=== PATIENT | male | born 1960 | race African-American/Black ===

== ENCOUNTER 2016-11-10 23:17 | Emergency (ER) | payer MEDICARE, MEDICAID ==
[~2016-11-10] VITALS: Ht 180.3 cm; Wt 91.0 kg
[~2016-11-10 23:17] MED LIST: AMIT10TA6 PO; CARV3.1242 PO; COLC0.6T66 PO; DIATR MEGLU/DIATRIZOATE SOLN 120ML ONE; DIGO250T4 PO; DIPH25CA83 PO; DOCU-150 PO; FAMO20TA8 PO; FURO80TA3 PO; GABA-290 PO; HYDR-519 PO; HYDR4TAB23 PO; INSU3INS6 SUBCUT; IOHEXOL-300 100 ML BOTTLE ONE; OMEP20CA10 PO; POTA10TA15 PO; SILV20CR15 TP; SODIUM CHLORIDE 0.9% 10ML VIAL ONE; SPIR25TA4 PO; VIAG50 PO
[2016-11-11] MEDS ORDERED: MORPHINE SULFATE 4 MG/ML CPJ (NOT FOR IM USE) IV STA (00:09)
[2016-11-11] MEDS ORDERED: ONDANSETRON HCL 4MG/2ML VIAL IV STA (00:09)
[2016-11-11] MEDS ORDERED: SODIUM CHLORIDE 0.9% 1,000 ML IV ONE (00:09)
[2016-11-11 00:31] LABS: BASOPHILS % 0.6 % (0.0-2.0); DIFFERENTIAL COMMENT 0; EOSINOPHILS % 0.5 % (0.0-5.0); HEMATOCRIT. 33.5 % (42.0-52.0); HEMOGLOBIN. 10.9 g/dL (14.0-18.0); MEAN CORPUSCULAR HEMOGLOBIN 25.2 pg (28.0-32.0); MEAN CORPUSCULAR HGB CONC 32.6 g/dL (31.0-37.0); MEAN CORPUSCULAR VOLUME 77.5 fL (80.0-94.0); MEAN PLATELET VOLUME 9.4 fl (7.4-10.4); NEUTROPHILS % 75.9 % (40.0-76.0); PLATELET 110 x1000/uL (130-400); RED BLOOD CELL COUNT 4.32 mill/uL (4.7-6.1); RED CELL DISTRIBUTION WIDTH 18.5 % (11.6-14.6); WHITE BLOOD COUNT 3.7 x1000/uL (4.5-11.0)
[2016-11-11 00:35] LABS: INR 2.8
[2016-11-11 00:44] LABS: ALANINE AMINOTRANSFERASE 23 IU/L (13-61); ALBUMIN 3.9 g/dL (3.4-5.0); ANION GAP 14; CALCIUM 8.7 mg/dL (8.5-10.1); CARBON DIOXIDE 28 mEq/L (21-32); CHLORIDE 94 mEq/L (98-107); INDEX HEMOLYSI 1 (1-3); INDEX ICTERIC 2 (1-4); INDEX LIPEMIC 1 (1-3); LIPASE 84 IU/L (73-393); TROPONIN I 0.04 ng/mL (0.00-0.04); UREA NITROGEN BLOOD 17 mg/dL (7-21); eGFR > 60 mL/min (>60)
[2016-11-11] MEDS ORDERED: ONDANSETRON HCL 4MG/2ML VIAL IV ONE (05:00)
[2016-11-11] MEDS ORDERED: MORPHINE SULFATE 4 MG/ML CPJ (NOT FOR IM USE) IV ONE (05:00)
[2016-11-11 07:33] VITALS: BP 108/64
== END 2016-11-11 07:54 | disposition home or self-care (01) ==
LOC: ER 23:22
DX: R10.9 Unspecified abdominal pain (principal); R11.2 Nausea with vomiting, unspecified; R07.89 Other chest pain; I48.91 Unspecified atrial fibrillation; I50.9 Heart failure, unspecified; E11.9 Type 2 diabetes mellitus without complications; I10 Essential (primary) hypertension; F12.10 Cannabis abuse, uncomplicated; Z98.890 Other specified postprocedural states; Z88.0 Allergy status to penicillin; Z88.6 Allergy status to analgesic agent; Z79.899 Other long term (current) drug therapy
CPT/HCPCS: 36415; 71010; 74177; 80053; 83605; 83690; 84484; 85025; 85610; 93005; 96361; 96374; 96375; 96376; 99285; A4216; J2270; J2405; J7030; Q9967; Q9963

== ENCOUNTER 2016-11-12 09:24 | Emergency (ER) | payer MEDICARE, MEDICAID ==
[~2016-11-12] VITALS: Ht 177.8 cm; Wt 80.0 kg
[~2016-11-12 09:24] MED LIST changes: -DIATR MEGLU/DIATRIZOATE SOLN 120ML ONE; -IOHEXOL-300 100 ML BOTTLE ONE; -SODIUM CHLORIDE 0.9% 10ML VIAL ONE
[2016-11-12] MEDS ORDERED: MAGNESIUM/ALUMINUM HYDROXIDE/SIMETHICONE 30ML UDC PO STA (10:06)
[2016-11-12] MEDS ORDERED: ONDANSETRON HCL 4MG/2ML VIAL IV STA (10:06)
[2016-11-12] MEDS ORDERED: VISCOUS LIDOCAINE 2% 15 ML UDC PO STA (10:06)
[2016-11-12] MEDS ORDERED: FAMOTIDINE 20MG/2ML VIAL IV STA (10:06)
[2016-11-12 10:47] LABS: CHLORIDE 89 mEq/L (98-107); DIFFERENTIAL COMMENT 1; HEMATOCRIT. 34.6 % (42.0-52.0); HEMOGLOBIN. 11.4 g/dL (14.0-18.0); INDEX HEMOLYSI 1 (1-3); INDEX ICTERIC 2 (1-4); INDEX LIPEMIC 1 (1-3); MEAN CORPUSCULAR HEMOGLOBIN 25.3 pg (28.0-32.0); MEAN CORPUSCULAR HGB CONC 32.9 g/dL (31.0-37.0); PLATELET 122 x1000/uL (130-400); RED BLOOD CELL COUNT 4.49 mill/uL (4.7-6.1); RED CELL DISTRIBUTION WIDTH 18.2 % (11.6-14.6); WHITE BLOOD COUNT 2.9 x1000/uL (4.5-11.0)
[2016-11-12 10:54] LABS: INR 3.5; PARTIAL THROMBOPLASTIN TIME 42.1 sec (24.0-34.0); PROTHROMBIN TIME 37.1 sec
[2016-11-12 10:55] LABS: ALANINE AMINOTRANSFERASE 24 IU/L (13-61); ALBUMIN 3.7 g/dL (3.4-5.0); ANION GAP 14; CALCIUM 9.3 mg/dL (8.5-10.1); CARBON DIOXIDE 31 mEq/L (21-32); LIPASE 84 IU/L (73-393); UREA NITROGEN BLOOD 15 mg/dL (7-21); eGFR > 60 mL/min (>60)
[2016-11-12] MEDS ORDERED: POTASSIUM CHLORIDE 40MEQ/30ML UDC PO ONE (11:00)
[2016-11-12 11:05] LABS: ANISOCYTOSIS 1+; PLATELET ESTIMATE SLIGHTLY DECREASED
[2016-11-12] MEDS ORDERED: METOCLOPRAMIDE HCL 10MG/2ML VIAL IV ONE (11:15)
[2016-11-12] MEDS ORDERED: KETOROLAC 30MG/ML VIAL IV ONE (11:15)
[2016-11-12] MEDS ORDERED: POTASSIUM CHLORIDE 20 MEQ/PACKET PO ONE (11:30)
[2016-11-12 11:57] VITALS: BP 116/63
== END 2016-11-12 11:59 | disposition home or self-care (01) ==
LOC: ER 09:41
DX: K52.9 Noninfective gastroenteritis and colitis, unspecified (principal); K29.70 Gastritis, unspecified, without bleeding; M32.9 Systemic lupus erythematosus, unspecified; J44.9 Chronic obstructive pulmonary disease, unspecified; I50.9 Heart failure, unspecified; I48.91 Unspecified atrial fibrillation; I10 Essential (primary) hypertension; E11.9 Type 2 diabetes mellitus without complications; F12.10 Cannabis abuse, uncomplicated; Z88.0 Allergy status to penicillin; Z88.6 Allergy status to analgesic agent; Z79.4 Long term (current) use of insulin
CPT/HCPCS: 36415; 71010; 80053; 83690; 85025; 85610; 85730; 93005; 96374; 96375; 99285; J1885; J2405; J2765; J3490

== ENCOUNTER 2017-03-05 15:58 | Inpatient (IN) | payer MEDICARE, MEDICAID ==
[~2017-03-05] VITALS: Ht 182.9 cm; Wt 79.4 kg
[~2017-03-05 15:58] MED LIST changes: -HYDR4TAB23 PO; +HYDR4TAB4 PO
[2017-03-05] MEDS ORDERED: SODIUM CHLORIDE 0.9% 500 ML IV ONE (17:15)
[2017-03-05] MEDS ORDERED: MORPHINE SULFATE 4 MG/ML CPJ (NOT FOR IM USE) IV ONE (17:30)
[2017-03-05 17:35] LABS: BASOPHILS % 0.9 % (0.0-2.0); EOSINOPHILS % 0.9 % (0.0-5.0); HEMATOCRIT. 39.9 % (42.0-52.0); HEMOGLOBIN. 13.4 g/dL (14.0-18.0); LYMPHOCYTES % 23.7 % (20.0-50.0); MEAN CORPUSCULAR HEMOGLOBIN 25.3 pg (28.0-32.0); MEAN CORPUSCULAR VOLUME 75.7 fL (80.0-94.0); MEAN PLATELET VOLUME 9.3 fl (7.4-10.4); MONOCYTES % 17.5 % (2.0-8.0); PLATELET 124 x1000/uL (130-400); RED BLOOD CELL COUNT 5.28 mill/uL (4.7-6.1)
[2017-03-05 17:43] LABS: INR 1.4; PROTHROMBIN TIME 14.2 sec
[2017-03-05 17:53] LABS: CARBON DIOXIDE 26 mEq/L (21-32); CHLORIDE 85 mEq/L (98-107); TROPONIN I 0.06 ng/mL (0.00-0.04)
[2017-03-05 18:28] LABS: PLATELET ESTIMATE NORMAL
[2017-03-05] MEDS ORDERED: MORPHINE SULFATE 4 MG/ML CPJ (NOT FOR IM USE) IV PRN (19:15)
[2017-03-05] MEDS ORDERED: ACETAMINOPHEN 325MG TABLET PO PRN (19:15)
[2017-03-05] MEDS ORDERED: MAGNESIUM/ALUMINUM HYDROXIDE/SIMETHICONE 30ML UDC PO PRN (19:15)
[2017-03-05] MEDS ORDERED: IPRATROPIUM/ALBUTEROL 0.5-3(2.5)MG/3ML NEB INH PRN (19:15)
[2017-03-05] MEDS ORDERED: DEXTROSE 50% WATER 50ML SYRINGE IV PRN (19:15)
[2017-03-05] MEDS ORDERED: SODIUM CHLORIDE 0.9% 1,000 ML IV SCH (19:29)
[2017-03-05] MEDS ORDERED: POTASSIUM CHLORIDE 20MEQ TABLET SR PO NR (19:30)
[2017-03-05] MEDS: ONDANSETRON HCL 4MG/2ML VIAL IV PRN (20:01)
[2017-03-05 20:15] LABS: *AMPHETAMINES SCREEN URINE NEGATIVE (NEGATIVE); *BARBITURATES SCREEN URINE NEGATIVE (NEGATIVE); *BENZODIAZEPINES SCREEN URINE NEGATIVE (NEGATIVE); *COCAINE SCREEN URINE NEGATIVE (NEGATIVE); CANNABINOID URINE SCREEN PRESUMTIVE POSITIVE (NEGATIVE); METHADONE URINE SCREEN NEGATIVE (NEGATIVE); OPIATES URINE SCREEN PRESUMTIVE POSITIVE (NEGATIVE); PHENCYCLIDINE URINE SCREEN NEGATIVE (NEGATIVE)
[2017-03-05 22:04] LABS: CLARITY URINE CLEAR (CLEAR); COLOR URINE YELLOW (YELLOW); GLUCOSE URINE NEGATIVE (NEGATIVE); KETONES URINE NEGATIVE (NEGATIVE); LEUKOCYTE ESTERASE URINE NEGATIVE (NEGATIVE); NITRITE URINE NEGATIVE (NEGATIVE); OCCULT BLOOD URINE NEGATIVE (NEGATIVE); PH URINE 6.5 (4.5-8.0); PROTEIN URINE NEGATIVE (NEGATIVE); SPECIFIC GRAVITY URINE 1.011 (1.005-1.030)
[2017-03-06] VITALS (41 sets, daily range): BP systolic 77–150; BP diastolic 31–72
[2017-03-06] MEDS ORDERED: LIDOCAINE HCL/EPINEPHRINE 1%-EPI 1:100,000 30 ML VIAL INFIL ONE
[2017-03-06] MEDS ORDERED: WARFARIN SODIUM 10MG TABLET PO NR (00:18)
[2017-03-06] MEDS: INSULIN LISPRO 100 UNITS/ML SUBCUT SCH ×5 (01:43→20:08)
[2017-03-06] MEDS: BLOOD SUGAR DIAGNOSTIC STRIP TEST SCH ×5 (02:05→20:03)
[2017-03-06] MEDS: ENOXAPARIN 80MG/0.8ML SYR SUBCUT SCH ×2 (03:01→15:36)
[2017-03-06] MEDS ORDERED: SODIUM CHLORIDE 0.9% 500 ML IV ONE (03:30)
[2017-03-06] MEDS: SODIUM CHLORIDE 0.9% 1,000 ML IV SCH ×3 (03:51→20:03)
[2017-03-06 05:45] LABS: BASOPHILS % 0.8 % (0.0-2.0); EOSINOPHILS % 1.4 % (0.0-5.0); HEMATOCRIT. 37.3 % (42.0-52.0); HEMOGLOBIN. 12.5 g/dL (14.0-18.0); LYMPHOCYTES % 29.3 % (20.0-50.0); MEAN CORPUSCULAR HEMOGLOBIN 25.4 pg (28.0-32.0); MEAN CORPUSCULAR VOLUME 75.9 fL (80.0-94.0); MEAN PLATELET VOLUME 9.3 fl (7.4-10.4); MONOCYTES % 14.5 % (2.0-8.0); PLATELET 120 x1000/uL (130-400); RED BLOOD CELL COUNT 4.91 mill/uL (4.7-6.1); RED CELL DISTRIBUTION WIDTH 19.9 % (11.6-14.6)
[2017-03-06] MEDS: SILDENAFIL CITRATE 20MG TABLET PO SCH ×3 (06:00→21:11)
[2017-03-06] MEDS: PANTOPRAZOLE SODIUM 40 MG/VIAL IV SCH ×2 (06:07→17:35)
[2017-03-06] MEDS: ONDANSETRON HCL 4MG/2ML VIAL IV PRN ×4 (06:51→18:13)
[2017-03-06] MEDS: IPRATROPIUM/ALBUTEROL 0.5-3(2.5)MG/3ML NEB HHN SCH ×5 (08:30→20:44)
[2017-03-06] MEDS ORDERED: PANTOPRAZOLE SODIUM 40 MG/VIAL IV SCH (09:00)
[2017-03-06] MEDS: MORPHINE SULFATE 2 MG/ML CPJ (NOT FOR IM USE) IV PRN ×3 (10:02→19:25)
[2017-03-06] MEDS: LEVOFLOXACIN 500MG PREMIX 100 ML IV SCH (13:29)
[2017-03-06] MEDS: METRONIDAZOLE 500 MG PREMIX 100 ML IV SCH ×2 (15:36→21:10)
[2017-03-06] MEDS ORDERED: WARFARIN SODIUM 10MG TABLET PO SCH (18:00)
[2017-03-06] MEDS: HYDROCODONE/ACETAMINOPHEN 5/325MG TABLET PO PRN ×2 (18:14→22:33)
[2017-03-06] MEDS ORDERED: TEMAZEPAM 15MG CAPSULE PO PRN (22:00)
[2017-03-06] MEDS ORDERED: KETOROLAC 30MG/ML VIAL IV PRN (22:00)
[2017-03-07] VITALS (10 sets, daily range): BP systolic 70–116; BP diastolic 32–63
[2017-03-07] MEDS ORDERED: SODIUM CHLORIDE 0.9% 500 ML IV ONE (00:15)
[2017-03-07] MEDS: IPRATROPIUM/ALBUTEROL 0.5-3(2.5)MG/3ML NEB HHN SCH ×6 (00:48→20:17)
[2017-03-07] MEDS: ENOXAPARIN 80MG/0.8ML SYR SUBCUT SCH ×2 (02:40→18:20)
[2017-03-07] MEDS: SILDENAFIL CITRATE 20MG TABLET PO SCH ×3 (06:00→21:31)
[2017-03-07 06:16] LABS: HEMATOCRIT. 32.3 % (42.0-52.0); HEMOGLOBIN. 10.9 g/dL (14.0-18.0); MEAN CORPUSCULAR HEMOGLOBIN 25.4 pg (28.0-32.0); MEAN CORPUSCULAR VOLUME 75.7 fL (80.0-94.0); MEAN PLATELET VOLUME 9.1 fl (7.4-10.4); PLATELET 90 x1000/uL (130-400); RED BLOOD CELL COUNT 4.27 mill/uL (4.7-6.1); RED CELL DISTRIBUTION WIDTH 19.8 % (11.6-14.6)
[2017-03-07 06:17] LABS: INR 1.4; PROTHROMBIN TIME 14.8 sec
[2017-03-07] MEDS: INSULIN LISPRO 100 UNITS/ML SUBCUT SCH ×4 (07:03→21:00)
[2017-03-07] MEDS: BLOOD SUGAR DIAGNOSTIC STRIP TEST SCH ×4 (07:03→21:14)
[2017-03-07] MEDS: PANTOPRAZOLE SODIUM 40 MG/VIAL IV SCH ×2 (07:04→18:20)
[2017-03-07] MEDS: SODIUM CHLORIDE 0.9% 1,000 ML IV SCH ×2 (07:06→17:03)
[2017-03-07 08:00] LABS: CARBON DIOXIDE 24 mEq/L (21-32); CHLORIDE 99 mEq/L (98-107)
[2017-03-07] MEDS: METRONIDAZOLE 500 MG PREMIX 100 ML IV SCH ×3 (09:38→21:31)
[2017-03-07] MEDS: MORPHINE SULFATE 2 MG/ML CPJ (NOT FOR IM USE) IV PRN ×3 (12:31→21:28)
[2017-03-07] MEDS: LEVOFLOXACIN 500MG PREMIX 100 ML IV SCH (12:45)
[2017-03-07 14:28] LABS: BG BASE EXCESS -2.6 mmol/L (-2.0-2.0); BG CARBOXYHEMOGLOBIN 0.8 % (0.5-1.5); BG DEOXYHEMOGLOBIN 3.2 % (0.0-5.0); BG FRACTION INSPIRED OXYGEN 28; BG HCO3 ACT 18.5 mmol/L (22.0-26.0); BG METHEMOGLOBIN 0.3 % (0.0-1.5); BG OXYGEN SATURATION 96.8 % (92.0-98.5); BG OXYHEMOGLOBIN 95.7 % (94.0-97.0); BG PCO2 22.5 mmHg (35.0-45.0); BG PH 7.532 (7.350-7.450); BG PO2 95.7 mmHg (75.0-100.0); BG SAMPLE SITE LEFT BRACHIAL; BG TOTAL HEMOGLOBIN 11.6 g/dL (12.0-18.0); BG VENT MODE NASAL CANNULA
[2017-03-07] MEDS ORDERED: POTASSIUM CHLORIDE 20MEQ TABLET SR PO NR (14:30)
[2017-03-07] MEDS ORDERED: WARFARIN SODIUM 10MG TABLET PO SCH (18:00)
[2017-03-07] MEDS: KETOROLAC 30MG/ML VIAL IV PRN (20:49)
[2017-03-07 21:09] LABS: ATYPICAL LYMPHOCYTES 1; PLATELET ESTIMATE DECREASED
[2017-03-07] MEDS: DIPHENHYDRAMINE 50MG/ML VIAL IV PRN (22:46)
[2017-03-08] VITALS: BP 105/59
[2017-03-08] MEDS: IPRATROPIUM/ALBUTEROL 0.5-3(2.5)MG/3ML NEB HHN SCH ×5 (00:46→21:07)
[2017-03-08] MEDS: SODIUM CHLORIDE 0.9% 1,000 ML IV SCH ×3 (02:27→22:38)
[2017-03-08] MEDS: MORPHINE SULFATE 2 MG/ML CPJ (NOT FOR IM USE) IV PRN ×4 (02:27→21:15)
[2017-03-08 04:00] VITALS: BP 106/59
[2017-03-08] MEDS: ONDANSETRON HCL 4MG/2ML VIAL IV PRN (04:07)
[2017-03-08] MEDS: DIPHENHYDRAMINE 50MG/ML VIAL IV PRN ×3 (05:21→16:24)
[2017-03-08] MEDS: KETOROLAC 30MG/ML VIAL IV PRN (05:21)
[2017-03-08] MEDS ORDERED: FLUT1DIS2 IH (05:45)
[2017-03-08] MEDS ORDERED: MOME13HF2 INH (05:45)
[2017-03-08] MEDS ORDERED: ATROV INH (05:45)
[2017-03-08] MEDS ORDERED: AMBR10TA3 PO (05:45)
[2017-03-08] MEDS ORDERED: RIOC2TAB PO (05:45)
[2017-03-08] MEDS ORDERED: LIDO1ADH6 TP (05:45)
[2017-03-08] MEDS ORDERED: TIOT18CA3 INH (05:45)
[2017-03-08] MEDS ORDERED: METO5TAB69 PO (05:45)
[2017-03-08] MEDS: METRONIDAZOLE 500 MG PREMIX 100 ML IV SCH ×2 (06:04→12:12)
[2017-03-08] MEDS: PANTOPRAZOLE SODIUM 40 MG/VIAL IV SCH (06:05)
[2017-03-08] MEDS: ENOXAPARIN 80MG/0.8ML SYR SUBCUT SCH (06:06)
[2017-03-08] MEDS: BLOOD SUGAR DIAGNOSTIC STRIP TEST SCH ×4 (06:11→21:25)
[2017-03-08] MEDS: INSULIN LISPRO 100 UNITS/ML SUBCUT SCH ×4 (06:11→21:00)
[2017-03-08] MEDS: SILDENAFIL CITRATE 20MG TABLET PO SCH ×3 (06:14→22:37)
[2017-03-08 06:39] LABS: INR 1.4; PROTHROMBIN TIME 14.6 sec
[2017-03-08 07:04] LABS: HEMATOCRIT. 31.2 % (42.0-52.0); HEMOGLOBIN. 10.5 g/dL (14.0-18.0); MEAN CORPUSCULAR HEMOGLOBIN 25.6 pg (28.0-32.0); MEAN PLATELET VOLUME 9.1 fl (7.4-10.4); PLATELET 81 x1000/uL (130-400); RED CELL DISTRIBUTION WIDTH 19.8 % (11.6-14.6)
[2017-03-08 08:00] VITALS: BP 98/58
[2017-03-08 08:12] LABS: CARBON DIOXIDE 23 mEq/L (21-32); CHLORIDE 100 mEq/L (98-107); PHOSPHORUS 2.4 mg/dL (2.5-4.9)
[2017-03-08 12:00] VITALS: BP 119/49
[2017-03-08] MEDS: LEVOFLOXACIN 500MG PREMIX 100 ML IV SCH (12:13)
[2017-03-08 13:59] LABS: PLATELET ESTIMATE DECREASED
[2017-03-08 16:00] VITALS: BP 110/60
[2017-03-08] MEDS ORDERED: WARFARIN SODIUM 10MG TABLET PO SCH (18:00)
[2017-03-08 20:00] VITALS: BP 144/72
[2017-03-08] MEDS ORDERED: MAGNESIUM 2 G PREMIX 50 ML IV NR (20:00)
[2017-03-08] MEDS: OMEPRAZOLE 20MG CAPSULE EXTENDED RELEASE PO SCH (21:05)
[2017-03-08] MEDS: GABAPENTIN 300MG CAPSULE PO SCH (21:06)
[2017-03-09] MEDS: IPRATROPIUM/ALBUTEROL 0.5-3(2.5)MG/3ML NEB HHN SCH ×6 (00:20→20:14)
[2017-03-09] MEDS: MORPHINE SULFATE 2 MG/ML CPJ (NOT FOR IM USE) IV PRN ×5 (01:30→18:03)
[2017-03-09 04:00] VITALS: BP 132/65
[2017-03-09] MEDS: ONDANSETRON HCL 4MG/2ML VIAL IV PRN (04:31)
[2017-03-09] MEDS: OMEPRAZOLE 20MG CAPSULE EXTENDED RELEASE PO SCH ×2 (06:04→21:13)
[2017-03-09] MEDS: GABAPENTIN 300MG CAPSULE PO SCH ×3 (06:04→21:13)
[2017-03-09] MEDS: METRONIDAZOLE 500MG TABLET PO SCH ×2 (06:04→14:18)
[2017-03-09] MEDS: SILDENAFIL CITRATE 20MG TABLET PO SCH ×3 (06:04→21:13)
[2017-03-09] MEDS: BLOOD SUGAR DIAGNOSTIC STRIP TEST SCH ×4 (06:07→20:49)
[2017-03-09] MEDS: INSULIN LISPRO 100 UNITS/ML SUBCUT SCH ×4 (06:07→20:49)
[2017-03-09] MEDS: DIPHENHYDRAMINE 50MG/ML VIAL IV PRN ×2 (06:18→22:35)
[2017-03-09 06:29] LABS: INR 1.4; PROTHROMBIN TIME 14.7 sec
[2017-03-09 08:00] VITALS: BP 117/64
[2017-03-09] MEDS ORDERED: LEVOFLOXACIN 500MG TABLET PO SCH (11:00)
[2017-03-09 11:09] LABS: HEMATOCRIT. 28.3 % (42.0-52.0); HEMOGLOBIN. 9.7 g/dL (14.0-18.0); MEAN CORPUSCULAR HEMOGLOBIN 25.6 pg (28.0-32.0); MEAN CORPUSCULAR VOLUME 74.5 fL (80.0-94.0); MEAN PLATELET VOLUME 10.1 fl (7.4-10.4); PLATELET 82 x1000/uL (130-400); RED CELL DISTRIBUTION WIDTH 19.9 % (11.6-14.6)
[2017-03-09 11:48] LABS: CARBON DIOXIDE 26 mEq/L (21-32); CHLORIDE 101 mEq/L (98-107); PHOSPHORUS 2.5 mg/dL (2.5-4.9)
[2017-03-09 12:00] VITALS: BP 122/57
[2017-03-09 13:10] LABS: *CREATININE RANDOM URINE 87.2 mg/dL (Not Estab.); MICROALBUMIN RANDOM URINE 5.6 ug/mL (Not Estab.); MICROALBUMIN/CREATININE RATIO 6.4 mg/g creat (0.0-30.0)
[2017-03-09 14:25] LABS: PLATELET ESTIMATE DECREASED
[2017-03-09] MEDS ORDERED: MAGNESIUM HYDROXIDE 400MG/5ML 30ML UDC PO PRN (14:30)
[2017-03-09 16:00] VITALS: BP 144/71
[2017-03-09] MEDS: DOCUSATE SODIUM 100MG CAPSULE PO SCH (17:00)
[2017-03-09] MEDS: POLYETHYLENE GLYCOL 3350 (17GM) 1 DOSE PACK PO SCH (17:10)
[2017-03-09] MEDS: FUROSEMIDE 40MG TABLET PO SCH (17:10)
[2017-03-09] MEDS ORDERED: WARFARIN SODIUM 7.5MG TABLET PO SCH (18:00)
[2017-03-09 20:02] VITALS: BP 155/95
[2017-03-09] MEDS: HYDROCODONE/ACETAMINOPHEN 5/325MG TABLET PO PRN (22:17)
[2017-03-10] VITALS: BP 135/75
[2017-03-10] MEDS: IPRATROPIUM/ALBUTEROL 0.5-3(2.5)MG/3ML NEB HHN SCH ×5 (00:04→21:51)
[2017-03-10 04:00] VITALS: BP 119/77
[2017-03-10] MEDS: BLOOD SUGAR DIAGNOSTIC STRIP TEST SCH ×4 (05:49→20:34)
[2017-03-10] MEDS: INSULIN LISPRO 100 UNITS/ML SUBCUT SCH ×4 (05:49→20:33)
[2017-03-10] MEDS: SILDENAFIL CITRATE 20MG TABLET PO SCH ×3 (05:56→21:07)
[2017-03-10] MEDS: OMEPRAZOLE 20MG CAPSULE EXTENDED RELEASE PO SCH ×2 (05:56→20:33)
[2017-03-10] MEDS: GABAPENTIN 300MG CAPSULE PO SCH ×3 (05:56→21:09)
[2017-03-10 06:05] LABS: INR 1.6; PROTHROMBIN TIME 16.2 sec
[2017-03-10 06:21] LABS: HEMATOCRIT. 30.9 % (42.0-52.0); HEMOGLOBIN. 10.4 g/dL (14.0-18.0); MEAN CORPUSCULAR HEMOGLOBIN 25.7 pg (28.0-32.0); MEAN CORPUSCULAR VOLUME 76.3 fL (80.0-94.0); MEAN PLATELET VOLUME 9.3 fl (7.4-10.4); PLATELET 80 x1000/uL (130-400); RED BLOOD CELL COUNT 4.05 mill/uL (4.7-6.1); RED CELL DISTRIBUTION WIDTH 19.6 % (11.6-14.6)
[2017-03-10] MEDS: POLYETHYLENE GLYCOL 3350 (17GM) 1 DOSE PACK PO SCH (08:17)
[2017-03-10] MEDS: FUROSEMIDE 40MG TABLET PO SCH (08:17)
[2017-03-10] MEDS: DOCUSATE SODIUM 100MG CAPSULE PO SCH ×2 (08:17→17:24)
[2017-03-10] MEDS: HYDROCODONE/ACETAMINOPHEN 5/325MG TABLET PO PRN ×3 (08:21→20:33)
[2017-03-10] MEDS: DIPHENHYDRAMINE 50MG/ML VIAL IV PRN ×2 (08:26→20:33)
[2017-03-10 08:30] VITALS: BP 122/63
[2017-03-10 12:18] VITALS: BP_SYST 102; BP_SYST 156; BP_DIAS 107; BP_DIAS 59
[2017-03-10 13:54] LABS: PLATELET ESTIMATE DECREASED
[2017-03-10 16:37] VITALS: BP 111/69
[2017-03-10] MEDS ORDERED: WARFARIN SODIUM 7.5MG TABLET PO NR (18:00)
[2017-03-10 20:00] VITALS: BP 103/59
[2017-03-11] VITALS (7 sets, daily range): BP systolic 103–134; BP diastolic 59–72
[2017-03-11] MEDS: DIPHENHYDRAMINE 50MG/ML VIAL IV PRN ×2 (01:10→10:56)
[2017-03-11] MEDS: HYDROCODONE/ACETAMINOPHEN 5/325MG TABLET PO PRN ×2 (01:24→05:36)
[2017-03-11] MEDS: IPRATROPIUM/ALBUTEROL 0.5-3(2.5)MG/3ML NEB HHN SCH ×5 (01:28→16:54)
[2017-03-11 05:22] LABS: INR 2.3; PROTHROMBIN TIME 23.6 sec
[2017-03-11] MEDS: GABAPENTIN 300MG CAPSULE PO SCH ×2 (05:36→14:08)
[2017-03-11] MEDS: SILDENAFIL CITRATE 20MG TABLET PO SCH ×2 (06:00→14:08)
[2017-03-11] MEDS: OMEPRAZOLE 20MG CAPSULE EXTENDED RELEASE PO SCH (06:56)
[2017-03-11] MEDS: INSULIN LISPRO 100 UNITS/ML SUBCUT SCH ×2 (06:56→17:15)
[2017-03-11] MEDS: BLOOD SUGAR DIAGNOSTIC STRIP TEST SCH ×2 (06:56→16:45)
[2017-03-11] MEDS: POLYETHYLENE GLYCOL 3350 (17GM) 1 DOSE PACK PO SCH (08:34)
[2017-03-11] MEDS: FUROSEMIDE 40MG TABLET PO SCH (08:34)
[2017-03-11] MEDS: DOCUSATE SODIUM 100MG CAPSULE PO SCH ×2 (08:36→17:22)
[2017-03-11 09:44] LABS: HEMATOCRIT. 28.1 % (42.0-52.0); HEMOGLOBIN. 9.5 g/dL (14.0-18.0); MEAN CORPUSCULAR HEMOGLOBIN 25.5 pg (28.0-32.0); MEAN CORPUSCULAR VOLUME 75.3 fL (80.0-94.0); MEAN PLATELET VOLUME 10.5 fl (7.4-10.4); PLATELET 84 x1000/uL (130-400); RED BLOOD CELL COUNT 3.73 mill/uL (4.7-6.1); RED CELL DISTRIBUTION WIDTH 20.1 % (11.6-14.6)
[2017-03-11] MEDS ORDERED: HYDROCODONE/ACETAMINOPHEN 5/325MG TABLET PO PRN (10:00)
[2017-03-11 13:49] LABS: PLATELET ESTIMATE DECREASED
[2017-03-11] MEDS ORDERED: WARFARIN SODIUM 10MG TABLET PO SCH (18:00)
== END 2017-03-11 18:05 | disposition home or self-care (01) | DRG 871 ==
LOC: ER 15:59 → CVICU 19:21 → EDBEDREQTM 19:38 → EDBEDREQ 19:38 → EDBEDREQSVC 22:36 → ENRESERV 03-06 00:48 → 5WST 03-06 23:15
PROVIDERS: ADMIT Internal Medicine; ATTEND Internal Medicine
DX: A41.9 Sepsis, unspecified organism (principal); N17.0 Acute kidney failure with tubular necrosis; J96.00 Acute respiratory failure, unspecified whether with hypoxia or hypercapnia; I26.99 Other pulmonary embolism without acute cor pulmonale; D68.62 Lupus anticoagulant syndrome; D61.818 Other pancytopenia; E86.0 Dehydration; I27.81 Cor pulmonale (chronic); I48.2 Chronic atrial fibrillation; R55 Syncope and collapse; I95.9 Hypotension, unspecified; I11.0 Hypertensive heart disease with heart failure; I50.9 Heart failure, unspecified; I27.2 Other secondary pulmonary hypertension; E11.9 Type 2 diabetes mellitus without complications; J44.9 Chronic obstructive pulmonary disease, unspecified
CPT/HCPCS: 36415; 36600; 70450; 71010; 76700; 78227; 78580; 80048; 80053; 80305; 81003; 82043; 82375; 82570; 82805; 82962; 83036; 83540; 83550; 83605; 83690; 83735; 83880; 84100; 84484; 85025; 85610; 87040; 87086; 93005; 93306; 93880; 93970; 94640; 96361; 96374; 99285; A9537; C1893; C9113; J1200; J1650; J1885; J1956; J2270; J2405; J3475; J3490; J7030; J7040; J7620

== ENCOUNTER 2017-09-30 01:00 | Inpatient (IN) | payer MEDICARE, MEDICAID ==
[~2017-09-30] VITALS: Ht 180.3 cm; Wt 90.7 kg
[~2017-09-30 01:00] MED LIST changes: +AMBR10TA3 PO; +ATROV INH; +FLUT1DIS2 IH; -INSU3INS6 SUBCUT; +LIDO1ADH6 TP; +METO5TAB69 PO; +MOME13HF2 INH; +RIOC2TAB PO; -SILV20CR15 TP; -SPIR25TA4 PO; +SPIR25TA6 PO; +TIOT18CA3 INH
[2017-09-30] MEDS ORDERED: ALBUTEROL (0.083%) 2.5MG/3ML NEB HHN STA (01:55)
[2017-09-30] MEDS ORDERED: ONDANSETRON HCL 4MG/2ML INJ IV STA (01:55)
[2017-09-30] MEDS ORDERED: METHYLPREDNISOLONE SOD SUCC 125 MG/2 ML VIAL IV STA (01:55)
[2017-09-30] MEDS ORDERED: NITROGLYCERIN OINT 1GM/INCH UDPKT TD STA (01:55)
[2017-09-30] MEDS ORDERED: IPRATROPIUM BROMIDE (0.02%) 0.5MG/2.5ML NEB HHN STA (01:55)
[2017-09-30] MEDS ORDERED: TRAMADOL 50MG TABLET PO ONE (02:00)
[2017-09-30 02:35] LABS: HEMATOCRIT. 23.8 % (42.0-52.0); HEMOGLOBIN. 7.8 g/dL (14.0-18.0); MEAN CORPUSCULAR HEMOGLOBIN 23.1 pg (28.0-32.0); MEAN CORPUSCULAR VOLUME 70.5 fL (80.0-94.0); PLATELET 191 x1000/uL (130-400); RED BLOOD CELL COUNT 3.37 mill/uL (4.7-6.1)
[2017-09-30 02:48] LABS: INR 1.6; PROTHROMBIN TIME 17.1 sec (9.4-11.6)
[2017-09-30] MEDS ORDERED: DIPHENHYDRAMINE 25MG CAPSULE PO ONE (03:15)
[2017-09-30 04:32] LABS: PLATELET ESTIMATE NORMAL
[2017-09-30 05:13] LABS: CHLORIDE 86 mEq/L (98-107)
[2017-09-30] MEDS ORDERED: HYDROCODONE/ACETAMINOPHEN 5/325MG TABLET PO ONE (06:47)
[2017-09-30 09:30] VITALS: BP 114/54
[2017-09-30] MEDS ORDERED: DEXTROSE 50% WATER 50ML SYRINGE IV PRN (10:15)
[2017-09-30] MEDS ORDERED: CLONIDINE 0.1MG TABLET PO PRN (10:15)
[2017-09-30] MEDS ORDERED: IPRATROPIUM/ALBUTEROL 0.5-3(2.5)MG/3ML NEB INH PRN (10:15)
[2017-09-30] MEDS ORDERED: ACETAMINOPHEN 325MG TABLET PO PRN (10:15)
[2017-09-30] MEDS ORDERED: MAGNESIUM/ALUMINUM HYDROXIDE/SIMETHICONE 30ML UDC PO PRN (10:15)
[2017-09-30] MEDS: HYDROCODONE/ACETAMINOPHEN 5/325MG TABLET PO PRN ×2 (10:48→18:57)
[2017-09-30] MEDS ORDERED: WARF10TA21 PO (10:51)
[2017-09-30] MEDS ORDERED: WARF7.5T22 PO (10:55)
[2017-09-30 11:00] VITALS: BP 114/54
[2017-09-30] MEDS: DIPHENHYDRAMINE 50MG/ML VIAL IV PRN ×3 (11:16→23:20)
[2017-09-30 12:00] VITALS: BP 103/57
[2017-09-30] MEDS: SODIUM CHLORIDE 0.9% 1,000 ML IV SCH ×2 (12:14→21:05)
[2017-09-30] MEDS: BLOOD SUGAR DIAGNOSTIC STRIP TEST SCH ×3 (12:14→21:15)
[2017-09-30] MEDS: INSULIN LISPRO 100 UNITS/ML SUBCUT SCH ×3 (12:48→21:14)
[2017-09-30] MEDS: SILDENAFIL CITRATE 20MG TABLET PO SCH ×2 (14:16→21:03)
[2017-09-30 16:00] VITALS: BP 90/56
[2017-09-30] MEDS: SODIUM CHLORIDE 0.9% INJ 3ML FLUSH IVF SCH ×2 (16:58→21:04)
[2017-09-30] MEDS: DIGOXIN 125MCG TABLET PO SCH (17:39)
[2017-09-30] MEDS ORDERED: WARFARIN SODIUM 10MG TABLET PO SCH (18:00)
[2017-09-30 18:01] VITALS: BP 103/61
[2017-09-30 20:00] VITALS: BP 101/53
[2017-09-30] MEDS ORDERED: WARFARIN SODIUM 10MG TABLET PO NR (20:00)
[2017-09-30] MEDS: CARVEDILOL 3.125 MG TABLET PO SCH (21:00)
[2017-09-30] MEDS ORDERED: GABAPENTIN 300MG CAPSULE PO ONE (22:15)
[2017-09-30] MEDS ORDERED: GABAPENTIN 300MG CAPSULE PO SCH (22:15)
[2017-09-30] MEDS: GUAIFENESIN 200MG/10ML SUGAR FREE UDC PO PRN (23:17)
[2017-09-30] MEDS: HYDROCODONE/ACETAMINOPHEN 10/325MG TABLET PO PRN (23:20)
[2017-10-01] VITALS: BP 121/54
[2017-10-01] MEDS: DIPHENHYDRAMINE 50MG/ML VIAL IV PRN ×4 (03:22→22:24)
[2017-10-01 04:00] VITALS: BP 120/69
[2017-10-01] MEDS: SODIUM CHLORIDE 0.9% INJ 3ML FLUSH IVF SCH ×3 (06:42→21:09)
[2017-10-01] MEDS: SILDENAFIL CITRATE 20MG TABLET PO SCH ×3 (06:43→21:09)
[2017-10-01] MEDS: GABAPENTIN 300MG CAPSULE PO SCH ×3 (06:43→21:09)
[2017-10-01] MEDS: INSULIN LISPRO 100 UNITS/ML SUBCUT SCH ×4 (06:44→21:00)
[2017-10-01] MEDS: BLOOD SUGAR DIAGNOSTIC STRIP TEST SCH ×4 (06:45→21:10)
[2017-10-01 06:56] LABS: HEMATOCRIT. 22.8 % (42.0-52.0); HEMOGLOBIN. 7.3 g/dL (14.0-18.0); MEAN CORPUSCULAR HEMOGLOBIN 22.5 pg (28.0-32.0); MEAN PLATELET VOLUME 8.9 fl (7.4-10.4); PLATELET 167 x1000/uL (130-400); RED BLOOD CELL COUNT 3.25 mill/uL (4.7-6.1); RED CELL DISTRIBUTION WIDTH 21.2 % (11.6-14.6)
[2017-10-01 06:59] LABS: INR 2.1; PROTHROMBIN TIME 21.3 sec (9.4-11.6)
[2017-10-01 07:57] LABS: CHLORIDE 93 mEq/L (98-107)
[2017-10-01 08:00] VITALS: BP 118/54
[2017-10-01] MEDS: CARVEDILOL 3.125 MG TABLET PO SCH ×2 (08:34→21:08)
[2017-10-01] MEDS: HYDROCODONE/ACETAMINOPHEN 10/325MG TABLET PO PRN ×3 (09:08→22:24)
[2017-10-01 12:00] VITALS: BP 95/56
[2017-10-01] MEDS ORDERED: IPRATROPIUM/ALBUTEROL 0.5-3(2.5)MG/3ML NEB HHN SCH (12:00)
[2017-10-01] MEDS: SODIUM CHLORIDE 0.9% 1,000 ML IV SCH (13:34)
[2017-10-01 16:00] VITALS: BP 143/66
[2017-10-01] MEDS: ONDANSETRON HCL 4MG/2ML INJ IV PRN (16:28)
[2017-10-01] MEDS: IPRATROPIUM/ALBUTEROL 0.5-3(2.5)MG/3ML NEB HHN SCH ×2 (16:52→20:34)
[2017-10-01] MEDS: DIGOXIN 125MCG TABLET PO SCH (17:38)
[2017-10-01] MEDS ORDERED: WARFARIN SODIUM 10MG TABLET PO NR (18:00)
[2017-10-01 20:00] VITALS: BP 117/64
[2017-10-01] MEDS: BUDESONIDE 0.5MG/2ML NEB HHN SCH (20:33)
[2017-10-02] VITALS: BP 104/77
[2017-10-02] MEDS: IPRATROPIUM/ALBUTEROL 0.5-3(2.5)MG/3ML NEB HHN SCH ×4 (01:49→19:44)
[2017-10-02 04:00] VITALS: BP 134/65
[2017-10-02] MEDS: GUAIFENESIN 200MG/10ML SUGAR FREE UDC PO PRN (04:45)
[2017-10-02] MEDS: DIPHENHYDRAMINE 50MG/ML VIAL IV PRN ×4 (04:45→23:38)
[2017-10-02] MEDS: SODIUM CHLORIDE 0.9% 1,000 ML IV SCH (04:45)
[2017-10-02] MEDS: BLOOD SUGAR DIAGNOSTIC STRIP TEST SCH ×4 (04:48→20:44)
[2017-10-02] MEDS: HYDROCODONE/ACETAMINOPHEN 10/325MG TABLET PO PRN ×3 (04:48→20:39)
[2017-10-02] MEDS: SODIUM CHLORIDE 0.9% INJ 3ML FLUSH IVF SCH ×3 (04:49→21:14)
[2017-10-02] MEDS: INSULIN LISPRO 100 UNITS/ML SUBCUT SCH ×4 (04:49→20:44)
[2017-10-02 06:01] LABS: INR 2.3; PROTHROMBIN TIME 23.8 sec (9.4-11.6)
[2017-10-02 06:19] LABS: CHLORIDE 95 mEq/L (98-107)
[2017-10-02 06:24] LABS: HEMATOCRIT. 22.1 % (42.0-52.0); HEMOGLOBIN. 7.2 g/dL (14.0-18.0); MEAN CORPUSCULAR HEMOGLOBIN 22.8 pg (28.0-32.0); MEAN PLATELET VOLUME 9.1 fl (7.4-10.4); PLATELET 157 x1000/uL (130-400); RED BLOOD CELL COUNT 3.16 mill/uL (4.7-6.1); RED CELL DISTRIBUTION WIDTH 21.3 % (11.6-14.6)
[2017-10-02] MEDS: GABAPENTIN 300MG CAPSULE PO SCH ×3 (07:01→21:14)
[2017-10-02] MEDS: SILDENAFIL CITRATE 20MG TABLET PO SCH ×3 (07:02→21:14)
[2017-10-02 08:00] VITALS: BP 106/63
[2017-10-02] MEDS: BUDESONIDE 0.5MG/2ML NEB HHN SCH ×2 (08:20→19:44)
[2017-10-02] MEDS: CARVEDILOL 3.125 MG TABLET PO SCH ×2 (08:42→20:40)
[2017-10-02 12:00] VITALS: BP 127/96
[2017-10-02 12:57] LABS: PLATELET ESTIMATE NORMAL
[2017-10-02 13:29] LABS: PLATELET ESTIMATE NORMAL
[2017-10-02] MEDS ORDERED: MAGNESIUM HYDROXIDE 400MG/5ML 30ML UDC PO PRN (13:30)
[2017-10-02] MEDS ORDERED: AZITHROMYCIN 500 MG TABLET PO SCH (13:30)
[2017-10-02] MEDS ORDERED: IPRATROPIUM/ALBUTEROL 0.5-3(2.5)MG/3ML NEB HHN PRN (13:30)
[2017-10-02] MEDS: AZITHROMYCIN 500 MG TABLET PO SCH (13:55)
[2017-10-02] MEDS: POLYETHYLENE GLYCOL 3350 (17GM) 1 DOSE PACK PO SCH (13:56)
[2017-10-02] MEDS ORDERED: ACETYLCYSTEINE 100MG/ML 10% VIAL 4ML INH NR (15:00)
[2017-10-02 16:00] VITALS: BP 133/58
[2017-10-02] MEDS: DIGOXIN 125MCG TABLET PO SCH (17:59)
[2017-10-02] MEDS ORDERED: WARFARIN SODIUM 10MG TABLET PO SCH (18:00)
[2017-10-02 20:00] VITALS: BP 118/66
[2017-10-02] MEDS: GUAIFENESIN 600MG ER TABLET PO SCH (20:40)
[2017-10-03] VITALS: BP 120/63
[2017-10-03] MEDS: HYDROCODONE/ACETAMINOPHEN 10/325MG TABLET PO PRN ×5 (02:44→23:48)
[2017-10-03] MEDS: IPRATROPIUM/ALBUTEROL 0.5-3(2.5)MG/3ML NEB HHN SCH ×4 (03:08→21:15)
[2017-10-03] MEDS: DIPHENHYDRAMINE 50MG/ML VIAL IV PRN ×4 (03:48→16:38)
[2017-10-03 04:00] VITALS: BP 126/69
[2017-10-03] MEDS: SILDENAFIL CITRATE 20MG TABLET PO SCH ×3 (05:47→21:07)
[2017-10-03] MEDS: GABAPENTIN 300MG CAPSULE PO SCH ×3 (05:47→21:07)
[2017-10-03] MEDS: SODIUM CHLORIDE 0.9% INJ 3ML FLUSH IVF SCH ×3 (05:48→21:08)
[2017-10-03] MEDS: BLOOD SUGAR DIAGNOSTIC STRIP TEST SCH ×4 (05:50→21:08)
[2017-10-03 06:01] LABS: INR 2.4; PROTHROMBIN TIME 24.8 sec (9.4-11.6)
[2017-10-03] MEDS: INSULIN LISPRO 100 UNITS/ML SUBCUT SCH ×4 (06:19→21:00)
[2017-10-03] MEDS: BUDESONIDE 0.5MG/2ML NEB HHN SCH ×2 (07:23→21:15)
[2017-10-03 08:00] VITALS: BP 136/69
[2017-10-03] MEDS: GUAIFENESIN 600MG ER TABLET PO SCH ×2 (08:04→21:07)
[2017-10-03] MEDS: AZITHROMYCIN 500 MG TABLET PO SCH (08:04)
[2017-10-03] MEDS: CARVEDILOL 3.125 MG TABLET PO SCH ×2 (08:05→21:07)
[2017-10-03] MEDS: POLYETHYLENE GLYCOL 3350 (17GM) 1 DOSE PACK PO SCH (08:53)
[2017-10-03 12:00] VITALS: BP 129/72
[2017-10-03] MEDS: DIGOXIN 125MCG TABLET PO SCH (17:23)
[2017-10-03] MEDS ORDERED: WARFARIN SODIUM 10MG TABLET PO NR (18:00)
[2017-10-03 20:00] VITALS: BP 132/73
[2017-10-03] MEDS: ONDANSETRON HCL 4MG/2ML INJ IV PRN (23:33)
[2017-10-04] VITALS: BP 130/70
[2017-10-04] MEDS: DIPHENHYDRAMINE 50MG/ML VIAL IV PRN ×2 (02:23→06:17)
[2017-10-04] MEDS: IPRATROPIUM/ALBUTEROL 0.5-3(2.5)MG/3ML NEB HHN SCH ×2 (02:24→08:41)
[2017-10-04 04:00] VITALS: BP 128/69
[2017-10-04] MEDS: SILDENAFIL CITRATE 20MG TABLET PO SCH (06:17)
[2017-10-04] MEDS: GABAPENTIN 300MG CAPSULE PO SCH (06:17)
[2017-10-04] MEDS: BLOOD SUGAR DIAGNOSTIC STRIP TEST SCH (06:18)
[2017-10-04] MEDS: ONDANSETRON HCL 4MG/2ML INJ IV PRN (06:31)
[2017-10-04] MEDS: SODIUM CHLORIDE 0.9% INJ 3ML FLUSH IVF SCH (06:32)
[2017-10-04] MEDS: HYDROCODONE/ACETAMINOPHEN 10/325MG TABLET PO PRN (06:32)
[2017-10-04 06:56] LABS: INR 2.4; PROTHROMBIN TIME 25.4 sec (9.4-11.6)
[2017-10-04] MEDS: INSULIN LISPRO 100 UNITS/ML SUBCUT SCH (06:59)
[2017-10-04 08:00] VITALS: BP 126/63
[2017-10-04] MEDS: BUDESONIDE 0.5MG/2ML NEB HHN SCH (08:40)
[2017-10-04] MEDS: GUAIFENESIN 600MG ER TABLET PO SCH (09:32)
[2017-10-04] MEDS: AZITHROMYCIN 500 MG TABLET PO SCH (09:32)
[2017-10-04] MEDS: CARVEDILOL 3.125 MG TABLET PO SCH (09:33)
[2017-10-04] MEDS: POLYETHYLENE GLYCOL 3350 (17GM) 1 DOSE PACK PO SCH (09:33)
[2017-10-04 12:11] VITALS: BP 96/54
[2017-10-04] MEDS ORDERED: WARFARIN SODIUM 10MG TABLET PO SCH (18:00)
== END 2017-10-04 13:55 | disposition home or self-care (01) | DRG 682 ==
LOC: ER 01:29 → EDBEDREQ 03:09 → 5WST 05:45 → EDBEDREQTM 05:48 → EDBEDREQ 05:48 → ENRESERV 07:14
PROVIDERS: ADMIT Internal Medicine; ATTEND Internal Medicine
DX: N17.9 Acute kidney failure, unspecified (principal); J96.00 Acute respiratory failure, unspecified whether with hypoxia or hypercapnia; E87.1 Hypo-osmolality and hyponatremia; I11.0 Hypertensive heart disease with heart failure; I50.9 Heart failure, unspecified; E11.9 Type 2 diabetes mellitus without complications; D64.9 Anemia, unspecified; I27.20 Pulmonary hypertension, unspecified; I48.2 Chronic atrial fibrillation; F17.200 Nicotine dependence, unspecified, uncomplicated; G89.29 Other chronic pain; J44.9 Chronic obstructive pulmonary disease, unspecified; Z79.01 Long term (current) use of anticoagulants; Z82.49 Family history of ischemic heart disease and other diseases of the circulatory system; Z86.711 Personal history of pulmonary embolism; Z86.718 Personal history of other venous thrombosis and embolism; Z88.0 Allergy status to penicillin; Z79.899 Other long term (current) drug therapy; Z79.1 Long term (current) use of non-steroidal anti-inflammatories (NSAID)
CPT/HCPCS: 36415; 71045; 80048; 82270; 82962; 83605; 83735; 83880; 84484; 93005; 94640; 94664; 96374; 96375; 99285; A6261; J1200; J1815; J2405; J2930; J7030; J7608; J7611; J7620; J7626; Q0163

== ENCOUNTER 2017-12-26 12:56 | Inpatient (IN) | payer MEDICARE, MEDICAID ==
[~2017-12-26] VITALS: Ht 180.3 cm; Wt 86.6 kg
[~2017-12-26 12:56] MED LIST changes: -AMIT10TA6 PO; -HYDR4TAB4 PO; +SPIR25TA4 PO; -SPIR25TA6 PO; +WARF10TA21 PO; +WARF7.5T22 PO
[2017-12-26] MEDS ORDERED: ASPIRIN 81MG TABLET PO STA (13:32)
[2017-12-26] MEDS ORDERED: ONDANSETRON HCL 4MG/2ML VIAL IV STA (13:32)
[2017-12-26] MEDS ORDERED: MORPHINE SULFATE 4 MG/ML CPJ (NOT FOR IM USE) IV STA (13:32)
[2017-12-26] MEDS ORDERED: NITROGLYCERIN OINT 1GM/INCH UDPKT TD STA (13:32)
[2017-12-26] MEDS ORDERED: MIDAZOLAM HCL 2 MG/2 ML VIAL IV ONE (14:15)
[2017-12-26 14:20] LABS: HEMATOCRIT. 41.7 % (42.0-52.0); HEMOGLOBIN. 14.3 g/dL (14.0-18.0); MEAN CORPUSCULAR HEMOGLOBIN 25.1 pg (28.0-32.0); MEAN CORPUSCULAR VOLUME 73.1 fL (80.0-94.0); PLATELET 203 x1000/uL (130-400); RED CELL DISTRIBUTION WIDTH 29.9 % (11.6-14.6)
[2017-12-26 14:26] LABS: CHLORIDE 85 mEq/L (98-107)
[2017-12-26 14:29] LABS: INR 2.3; PARTIAL THROMBOPLASTIN TIME 36.4 sec (23.4-31.0); PROTHROMBIN TIME 23.7 sec (9.4-11.6)
[2017-12-26 14:30] LABS: AMYLASE 46 IU/L (25-115)
[2017-12-26 14:35] LABS: CREATINE KINASE 233 IU/L (39-308)
[2017-12-26 14:38] LABS: CREATINE KINASE MB FRACTION 2.4 ng/mL (0.5-3.6)
[2017-12-26 15:25] LABS: PLATELET ESTIMATE NORMAL
[2017-12-26] MEDS ORDERED: POTASSIUM CHLORIDE 20MEQ TABLET SR PO ONE (16:30)
[2017-12-26] MEDS ORDERED: FUROSEMIDE 20MG/2ML VIAL IVP ONE (16:30)
[2017-12-26 17:30] LABS: CLARITY URINE CLEAR (CLEAR); COLOR URINE YELLOW (YELLOW); KETONES URINE TRACE (NEGATIVE); LEUKOCYTE ESTERASE URINE NEGATIVE (NEGATIVE); NITRITE URINE NEGATIVE (NEGATIVE); OCCULT BLOOD URINE NEGATIVE (NEGATIVE); PROTEIN URINE NEGATIVE (NEGATIVE); SPECIFIC GRAVITY URINE 1.012 (1.005-1.030); UROBILINOGEN URINE 0.2 E.U./dL (0.2-1.0)
[2017-12-26] MEDS ORDERED: IPRATROPIUM/ALBUTEROL 0.5-3(2.5)MG/3ML NEB INH PRN (18:45)
[2017-12-26] MEDS ORDERED: BISACODYL 5MG TABLET PO PRN (18:45)
[2017-12-26] MEDS ORDERED: MAGNESIUM CITRATE 300ML SOLUTION PO PRN (18:45)
[2017-12-26] MEDS ORDERED: BISACODYL 10MG SUPP PR PRN (18:45)
[2017-12-26] MEDS ORDERED: GUAIFENESIN 200MG/10ML SUGAR FREE UDC PO PRN (18:45)
[2017-12-26] MEDS ORDERED: MINERAL OIL ENEMA 133ML PR ONE (18:45)
[2017-12-26] MEDS ORDERED: DOCUSATE SODIUM 100MG CAPSULE PO PRN (18:45)
[2017-12-26] MEDS ORDERED: MAGNESIUM/ALUMINUM HYDROXIDE/SIMETHICONE 30ML UDC PO PRN (18:45)
[2017-12-26] MEDS ORDERED: CLONIDINE 0.1MG TABLET PO PRN (18:45)
[2017-12-26] MEDS ORDERED: MAGNESIUM CITRATE 300ML SOLUTION PO ONE (18:45)
[2017-12-26] MEDS ORDERED: NITROGLYCERIN 0.4MG TABLET SL SL PRN (18:45)
[2017-12-26 19:54] LABS: *AMPHETAMINES SCREEN URINE NEGATIVE (NEGATIVE); *BARBITURATES SCREEN URINE NEGATIVE (NEGATIVE); *BENZODIAZEPINES SCREEN URINE PRESUMTIVE POSITIVE (NEGATIVE); *COCAINE SCREEN URINE NEGATIVE (NEGATIVE)
[2017-12-26 19:55] LABS: CANNABINOID URINE SCREEN PRESUMTIVE POSITIVE (NEGATIVE); METHADONE URINE SCREEN NEGATIVE (NEGATIVE); OPIATES URINE SCREEN PRESUMTIVE POSITIVE (NEGATIVE); PHENCYCLIDINE URINE SCREEN NEGATIVE (NEGATIVE)
[2017-12-26] MEDS ORDERED: ZOLPIDEM TARTRATE 5MG TABLET PO PRN (21:30)
[2017-12-26] MEDS ORDERED: PANTOPRAZOLE SODIUM 40 MG/VIAL IV SCH (21:30)
[2017-12-26] MEDS ORDERED: NA PHOS,M-B/NA PHOS,DI-BA ENEMA 118ML PR PRN (22:00)
[2017-12-26] MEDS: MORPHINE SULFATE 4 MG/ML CPJ (NOT FOR IM USE) IV PRN (22:55)
[2017-12-26] MEDS: METRONIDAZOLE 500 MG PREMIX 100 ML IV SCH (22:55)
[2017-12-26] MEDS: SODIUM CHLORIDE 0.9% INJ 3ML FLUSH IVF SCH (22:56)
[2017-12-26] MEDS ORDERED: DIPHENHYDRAMINE 25MG CAPSULE PO SCH (23:15)
[2017-12-26] MEDS: LEVOFLOXACIN 500MG PREMIX 100 ML IV SCH (23:42)
[2017-12-26] MEDS ORDERED: WARFARIN SODIUM 10MG TABLET PO SCH (23:45)
[2017-12-27] VITALS (8 sets, daily range): BP systolic 89–112; BP diastolic 51–59
[2017-12-27] MEDS ORDERED: HYDROCODONE/ACETAMINOPHEN 10/325MG TABLET PO SCH
[2017-12-27] MEDS ORDERED: WARFARIN SODIUM 10MG TABLET PO SCH ×2 (00:15→09:00)
[2017-12-27] MEDS: FAMOTIDINE 20MG TABLET PO SCH ×2 (00:25→10:34)
[2017-12-27] MEDS: CARVEDILOL 3.125 MG TABLET PO SCH ×3 (00:26→20:57)
[2017-12-27] MEDS: DOCUSATE SODIUM 100MG CAPSULE PO SCH ×3 (00:26→15:34)
[2017-12-27] MEDS: SPIRONOLACTONE 25MG TABLET PO SCH ×2 (00:28→09:00)
[2017-12-27] MEDS: COLCHICINE 0.6MG TABLET PO SCH ×2 (00:29→10:34)
[2017-12-27] MEDS: DIGOXIN 250MCG TABLET PO SCH ×2 (00:29→10:34)
[2017-12-27] MEDS: FUROSEMIDE 80MG TABLET PO SCH ×3 (00:29→21:44)
[2017-12-27 00:45] LABS: CREATINE KINASE MB FRACTION 2.3 ng/mL (0.5-3.6)
[2017-12-27] MEDS: DIPHENHYDRAMINE 50MG/ML VIAL IV PRN ×3 (04:08→21:54)
[2017-12-27 06:41] LABS: HEMATOCRIT. 39.9 % (42.0-52.0); HEMOGLOBIN. 13.7 g/dL (14.0-18.0); MEAN CORPUSCULAR HEMOGLOBIN 24.9 pg (28.0-32.0); MEAN CORPUSCULAR VOLUME 72.5 fL (80.0-94.0); MEAN PLATELET VOLUME 9.1 fl (7.4-10.4); PLATELET 210 x1000/uL (130-400)
[2017-12-27] MEDS: METRONIDAZOLE 500 MG PREMIX 100 ML IV SCH ×2 (06:46→12:53)
[2017-12-27] MEDS: SODIUM CHLORIDE 0.9% INJ 3ML FLUSH IVF SCH ×3 (06:46→21:44)
[2017-12-27] MEDS ORDERED: OMEPRAZOLE 20MG CAPSULE EXTENDED RELEASE PO SCH (07:20)
[2017-12-27 07:25] LABS: PLATELET ESTIMATE NORMAL
[2017-12-27 07:43] LABS: CHLORIDE 88 mEq/L (98-107)
[2017-12-27 07:56] LABS: CREATINE KINASE 191 IU/L (39-308)
[2017-12-27 07:57] LABS: HDL CHOLESTEROL 57 mg/dL (40-59); LDL CHOLESTEROL 62 mg/dL (5-100)
[2017-12-27 08:02] LABS: CREATINE KINASE MB FRACTION 2.4 ng/mL (0.5-3.6)
[2017-12-27] MEDS: ONDANSETRON HCL 4MG/2ML VIAL IV PRN ×3 (08:12→21:54)
[2017-12-27 09:04] LABS: T4 FREE 1.6 ng/dL (0.76-1.46)
[2017-12-27 14:40] LABS: D-DIMER 0.86 mg/L FEU (<0.50); INR 2.9; PROTHROMBIN TIME 30.4 sec (9.4-11.6)
[2017-12-27 14:57] LABS: CREATINE KINASE 179 IU/L (39-308)
[2017-12-27 14:58] LABS: CREATINE KINASE MB FRACTION 2.2 ng/mL (0.5-3.6)
[2017-12-27] MEDS: MORPHINE SULFATE 4 MG/ML CPJ (NOT FOR IM USE) IV PRN ×2 (16:10→21:58)
[2017-12-27] MEDS: METOCLOPRAMIDE HCL 10MG/2ML VIAL IV SCH ×2 (18:45→23:52)
[2017-12-27] MEDS: SODIUM CHLORIDE 0.9% 1,000 ML IV SCH (23:36)
[2017-12-27] MEDS: LEVOFLOXACIN 500MG PREMIX 100 ML IV SCH (23:52)
[2017-12-27 23:54] LABS: CREATINE KINASE 161 IU/L (39-308)
[2017-12-27 23:55] LABS: CREATINE KINASE MB FRACTION 2.1 ng/mL (0.5-3.6)
[2017-12-28] VITALS: BP 97/58
[2017-12-28] MEDS: IPRATROPIUM/ALBUTEROL 0.5-3(2.5)MG/3ML NEB HHN SCH (02:47)
[2017-12-28 04:00] VITALS: BP 112/70
[2017-12-28] MEDS: METOCLOPRAMIDE HCL 10MG/2ML VIAL IV SCH ×4 (06:38→23:55)
[2017-12-28] MEDS: SODIUM CHLORIDE 0.9% INJ 3ML FLUSH IVF SCH ×3 (06:38→22:00)
[2017-12-28 07:11] LABS: PROTHROMBIN TIME 31.8 sec (9.4-11.6)
[2017-12-28 08:00] VITALS: BP 98/56
[2017-12-28 08:11] LABS: CREATINE KINASE 132 IU/L (39-308)
[2017-12-28 08:12] LABS: CREATINE KINASE MB FRACTION 1.5 ng/mL (0.5-3.6)
[2017-12-28] MEDS: ONDANSETRON HCL 4MG/2ML VIAL IV PRN ×3 (08:23→14:31)
[2017-12-28] MEDS ORDERED: IOHEXOL-350 100 ML BOTTLE ONE (09:00)
[2017-12-28] MEDS: CARVEDILOL 3.125 MG TABLET PO SCH ×2 (09:00→20:23)
[2017-12-28] MEDS: DOCUSATE SODIUM 100MG CAPSULE PO SCH ×2 (09:31→17:00)
[2017-12-28] MEDS: FAMOTIDINE 20MG TABLET PO SCH (09:31)
[2017-12-28] MEDS: DIGOXIN 250MCG TABLET PO SCH (09:36)
[2017-12-28] MEDS: COLCHICINE 0.6MG TABLET PO SCH (09:40)
[2017-12-28] MEDS: MORPHINE SULFATE 4 MG/ML CPJ (NOT FOR IM USE) IV PRN ×3 (09:44→20:20)
[2017-12-28 10:14] LABS: HEMATOCRIT. 44.2 % (42.0-52.0); HEMOGLOBIN. 14.8 g/dL (14.0-18.0); MEAN CORPUSCULAR HEMOGLOBIN 24.4 pg (28.0-32.0); MEAN PLATELET VOLUME 8.9 fl (7.4-10.4); PLATELET 195 x1000/uL (130-400); RED BLOOD CELL COUNT 6.06 mill/uL (4.7-6.1); RED CELL DISTRIBUTION WIDTH 29.8 % (11.6-14.6)
[2017-12-28 10:35] LABS: CHLORIDE 81 mEq/L (98-107)
[2017-12-28] MEDS: DIPHENHYDRAMINE 50MG/ML VIAL IV PRN ×2 (10:53→20:21)
[2017-12-28 11:01] LABS: PLATELET ESTIMATE NORMAL
[2017-12-28 12:00] VITALS: BP 128/75
[2017-12-28] MEDS ORDERED: MEDICATION NOT ON FORMULARY EA (Ipratropium Bromide (Atrovent Hfa) 2 PUFF) INH SCH (13:30)
[2017-12-28] MEDS ORDERED: MEDICATION NOT ON FORMULARY EA (Tiotropium Bromide (Spiriva) 1 CAP) INH SCH (13:30)
[2017-12-28] MEDS ORDERED: MENTHOL TP SCH (13:30)
[2017-12-28] MEDS ORDERED: SILDENAFIL CITRATE PO SCH (13:30)
[2017-12-28] MEDS ORDERED: RIOCIGUAT 2 MG PO SCH (13:30)
[2017-12-28] MEDS ORDERED: FLUTICASONE IH SCH (13:30)
[2017-12-28] MEDS ORDERED: SALMETEROL IH SCH (13:30)
[2017-12-28] MEDS ORDERED: MEDICATION NOT ON FORMULARY EA (Gabapentin 1 TAB) PO SCH (13:30)
[2017-12-28] MEDS ORDERED: [UNRECOGNIZED DRUG - OTHER] TP SCH (13:30)
[2017-12-28] MEDS ORDERED: LIDOCAIN TP SCH (13:30)
[2017-12-28] MEDS: SPIRONOLACTONE 25MG TABLET PO SCH (13:50)
[2017-12-28] MEDS ORDERED: WARFARIN SODIUM 5MG TABLET PO NR (18:00)
[2017-12-28] MEDS ORDERED: WARFARIN SODIUM 10MG TABLET PO NR (18:00)
[2017-12-28] MEDS ORDERED: IPRATROPIUM BROMIDE (0.02%) 0.5MG/2.5ML NEB HHN SCH (18:00)
[2017-12-28] MEDS: SILDENAFIL CITRATE 20MG TABLET PO SCH ×2 (18:36→23:54)
[2017-12-28] MEDS: GABAPENTIN 300MG CAPSULE PO SCH ×2 (18:37→23:54)
[2017-12-28 20:00] VITALS: BP 108/59
[2017-12-28] MEDS: SODIUM CHLORIDE 0.9% 1,000 ML IV SCH (20:00)
[2017-12-28] MEDS ORDERED: PANTOPRAZOLE 40MG DR TABLET PO NR (21:23)
[2017-12-28] MEDS ORDERED: SILDENAFIL CITRATE 20MG TABLET PO SCH (22:00)
[2017-12-28] MEDS ORDERED: POTASSIUM CHLORIDE INJ 40 MEQ in DEXT 5% WATER 500 ML IV NR (23:00)
[2017-12-28] MEDS: LEVOFLOXACIN 500MG PREMIX 100 ML IV SCH (23:55)
[2017-12-29] VITALS: BP 117/70
[2017-12-29] MEDS ORDERED: POTASSIUM CHLORIDE INJ 40 MEQ in SODIUM CHLORIDE 0.9% 500 ML IV NR (00:14)
[2017-12-29] MEDS ORDERED: KCL 20MEQ/100ML PREMIX 100 ML IV NR ×2 (01:00→03:00)
[2017-12-29 04:00] VITALS: BP 96/59
[2017-12-29] MEDS: MORPHINE SULFATE 4 MG/ML CPJ (NOT FOR IM USE) IV PRN ×4 (04:31→20:57)
[2017-12-29] MEDS: PANTOPRAZOLE 40MG DR TABLET PO SCH (06:29)
[2017-12-29] MEDS: GABAPENTIN 300MG CAPSULE PO SCH ×3 (06:29→21:02)
[2017-12-29] MEDS: SILDENAFIL CITRATE 20MG TABLET PO SCH ×3 (06:29→21:02)
[2017-12-29] MEDS: SODIUM CHLORIDE 0.9% INJ 3ML FLUSH IVF SCH ×3 (06:30→21:03)
[2017-12-29] MEDS: METOCLOPRAMIDE HCL 10MG/2ML VIAL IV SCH ×3 (06:30→17:16)
[2017-12-29 08:00] VITALS: BP 134/78
[2017-12-29] MEDS: DIGOXIN 250MCG TABLET PO SCH (08:09)
[2017-12-29] MEDS: DOCUSATE SODIUM 100MG CAPSULE PO SCH ×2 (08:10→17:15)
[2017-12-29] MEDS: CARVEDILOL 3.125 MG TABLET PO SCH ×2 (08:10→20:56)
[2017-12-29] MEDS: COLCHICINE 0.6MG TABLET PO SCH (08:10)
[2017-12-29] MEDS: BUDESONIDE 0.5MG/2ML NEB HHN SCH ×2 (08:37→20:31)
[2017-12-29] MEDS: IPRATROPIUM/ALBUTEROL 0.5-3(2.5)MG/3ML NEB HHN SCH ×3 (08:38→20:31)
[2017-12-29 12:00] VITALS: BP 142/69
[2017-12-29] MEDS: DIPHENHYDRAMINE 50MG/ML VIAL IV PRN ×2 (14:56→21:47)
[2017-12-29 16:06] VITALS: BP 100/55
[2017-12-29] MEDS ORDERED: WARFARIN SODIUM 7.5MG TABLET PO SCH (18:00)
[2017-12-29 20:00] VITALS: BP 101/62
[2017-12-29 20:00] LABS: HEMATOCRIT. 42.6 % (42.0-52.0); HEMOGLOBIN. 14.4 g/dL (14.0-18.0); MEAN CORPUSCULAR HEMOGLOBIN 24.6 pg (28.0-32.0); MEAN CORPUSCULAR VOLUME 72.6 fL (80.0-94.0); MEAN PLATELET VOLUME 8.9 fl (7.4-10.4); PLATELET 200 x1000/uL (130-400); RED BLOOD CELL COUNT 5.86 mill/uL (4.7-6.1); RED CELL DISTRIBUTION WIDTH 29.1 % (11.6-14.6)
[2017-12-29 20:02] LABS: CHLORIDE 84 mEq/L (98-107)
[2017-12-29 20:08] LABS: INR 3.1; PROTHROMBIN TIME 32.4 sec (9.4-11.6)
[2017-12-29 20:29] LABS: ATYPICAL LYMPHOCYTES 2; PLATELET ESTIMATE NORMAL
[2017-12-29] MEDS: ONDANSETRON HCL 4MG/2ML VIAL IV PRN (20:58)
[2017-12-29] MEDS: LEVOFLOXACIN 500MG PREMIX 100 ML IV SCH (21:02)
[2017-12-30 00:24] VITALS: BP 101/60
[2017-12-30] MEDS: METOCLOPRAMIDE HCL 10MG/2ML VIAL IV SCH ×4 (01:29→18:39)
[2017-12-30] MEDS: MORPHINE SULFATE 4 MG/ML CPJ (NOT FOR IM USE) IV PRN ×5 (01:29→20:13)
[2017-12-30] MEDS: IPRATROPIUM/ALBUTEROL 0.5-3(2.5)MG/3ML NEB HHN SCH ×4 (01:54→21:18)
[2017-12-30] MEDS: DIPHENHYDRAMINE 50MG/ML VIAL IV PRN ×2 (02:15→15:27)
[2017-12-30 04:00] VITALS: BP 105/64
[2017-12-30] MEDS: SODIUM CHLORIDE 0.9% 1,000 ML IV SCH ×2 (05:28→21:28)
[2017-12-30 06:34] LABS: INR 2.7; PROTHROMBIN TIME 28.6 sec (9.4-11.6)
[2017-12-30] MEDS: PANTOPRAZOLE 40MG DR TABLET PO SCH (06:37)
[2017-12-30] MEDS: SODIUM CHLORIDE 0.9% INJ 3ML FLUSH IVF SCH ×3 (06:37→22:00)
[2017-12-30] MEDS: GABAPENTIN 300MG CAPSULE PO SCH ×3 (06:37→21:29)
[2017-12-30] MEDS: SILDENAFIL CITRATE 20MG TABLET PO SCH ×3 (06:37→21:28)
[2017-12-30 07:43] VITALS: BP 104/54
[2017-12-30] MEDS: CARVEDILOL 3.125 MG TABLET PO SCH ×2 (09:16→20:38)
[2017-12-30] MEDS: DIGOXIN 125MCG TABLET PO SCH (09:17)
[2017-12-30] MEDS: DOCUSATE SODIUM 100MG CAPSULE PO SCH ×2 (09:17→18:39)
[2017-12-30] MEDS: COLCHICINE 0.6MG TABLET PO SCH (09:17)
[2017-12-30] MEDS: BUDESONIDE 0.5MG/2ML NEB HHN SCH ×2 (09:49→21:18)
[2017-12-30 12:00] VITALS: BP 101/56
[2017-12-30] MEDS: LEVOFLOXACIN 500MG TABLET PO SCH (14:51)
[2017-12-30] MEDS ORDERED: WARFARIN SODIUM 5MG TABLET PO SCH (18:00)
[2017-12-30 20:34] VITALS: BP 99/66
[2017-12-31] VITALS (29 sets, daily range): BP systolic 88–130; BP diastolic 51–76
[2017-12-31] MEDS: METOCLOPRAMIDE HCL 10MG/2ML VIAL IV SCH ×3 (00:07→18:00)
[2017-12-31] MEDS: MORPHINE SULFATE 4 MG/ML CPJ (NOT FOR IM USE) IV PRN ×5 (00:08→22:14)
[2017-12-31] MEDS: IPRATROPIUM/ALBUTEROL 0.5-3(2.5)MG/3ML NEB HHN SCH ×4 (01:04→19:52)
[2017-12-31] MEDS: DIPHENHYDRAMINE 50MG/ML VIAL IV PRN ×3 (04:43→22:56)
[2017-12-31] MEDS: SILDENAFIL CITRATE 20MG TABLET PO SCH ×3 (06:50→22:06)
[2017-12-31] MEDS: GABAPENTIN 300MG CAPSULE PO SCH ×3 (06:51→22:06)
[2017-12-31 07:44] LABS: INR 1.8; PROTHROMBIN TIME 18.3 sec (9.4-11.6)
[2017-12-31] MEDS: CARVEDILOL 3.125 MG TABLET PO SCH ×2 (09:00→21:00)
[2017-12-31] MEDS: DOCUSATE SODIUM 100MG CAPSULE PO SCH ×2 (09:25→17:09)
[2017-12-31] MEDS: COLCHICINE 0.6MG TABLET PO SCH (09:26)
[2017-12-31] MEDS: PANTOPRAZOLE 40MG DR TABLET PO SCH (09:26)
[2017-12-31] MEDS: DIGOXIN 125MCG TABLET PO SCH (09:26)
[2017-12-31] MEDS: ONDANSETRON HCL 4MG/2ML VIAL IV PRN (11:49)
[2017-12-31] MEDS ORDERED: SODIUM CHLORIDE 0.9% 250 ML IV ONE (12:00)
[2017-12-31] MEDS: BUDESONIDE 0.5MG/2ML NEB HHN SCH ×2 (12:08→19:50)
[2017-12-31 12:17] LABS: BG BASE EXCESS 2.8 mmol/L (-2.0-2.0); BG DEOXYHEMOGLOBIN 3.7 % (0.0-5.0); BG FRACTION INSPIRED OXYGEN 28; BG HCO3 ACT 24.4 mmol/L (22.0-26.0); BG METHEMOGLOBIN 0.3 % (0.0-1.5); BG OXYGEN SATURATION 96.3 % (92.0-98.5); BG PCO2 28.6 mmHg (35.0-45.0); BG PH 7.549 (7.350-7.450); BG PO2 80.1 mmHg (75.0-100.0); BG SAMPLE SITE RIGHT RADIAL; BG TOTAL HEMOGLOBIN 12.4 g/dL (12.0-18.0); BG VENT MODE NASAL CANNULA
[2017-12-31] MEDS: LEVOFLOXACIN 500MG TABLET PO SCH (12:56)
[2017-12-31 13:24] LABS: CREATINE KINASE MB FRACTION 1.3 ng/mL (0.5-3.6)
[2017-12-31] MEDS: SODIUM CHLORIDE 0.9% INJ 3ML FLUSH IVF SCH ×2 (14:00→22:14)
[2017-12-31 15:32] LABS: HEMATOCRIT. 36.5 % (42.0-52.0); HEMOGLOBIN. 12.3 g/dL (14.0-18.0); MEAN CORPUSCULAR HEMOGLOBIN 24.5 pg (28.0-32.0); MEAN CORPUSCULAR VOLUME 72.9 fL (80.0-94.0); MEAN PLATELET VOLUME 9.4 fl (7.4-10.4); PLATELET 120 x1000/uL (130-400); RED BLOOD CELL COUNT 5.01 mill/uL (4.7-6.1); RED CELL DISTRIBUTION WIDTH 28.3 % (11.6-14.6)
[2017-12-31 15:35] LABS: CHLORIDE 93 mEq/L (98-107)
[2017-12-31 15:39] LABS: INR 1.7; PARTIAL THROMBOPLASTIN TIME 33.6 sec (23.4-31.0); PROTHROMBIN TIME 17.4 sec (9.4-11.6)
[2017-12-31] MEDS ORDERED: IOHEXOL-350 100 ML BOTTLE ONE ×2 (16:24→16:26)
[2017-12-31] MEDS: SODIUM CHLORIDE 0.9% 1,000 ML IV SCH (16:27)
[2017-12-31] MEDS ORDERED: PANTOPRAZOLE 40MG DR TABLET PO NR (16:30)
[2017-12-31] MEDS ORDERED: HYDROCODONE/ACETAMINOPHEN 5/325MG TABLET PO PRN (16:30)
[2017-12-31] MEDS: ENOXAPARIN 80MG/0.8ML SYR SUBCUT SCH (17:10)
[2017-12-31] MEDS ORDERED: MORPHINE SULFATE 4 MG/ML CPJ (NOT FOR IM USE) IV NR (17:51)
[2017-12-31] MEDS ORDERED: WARFARIN SODIUM 7.5MG TABLET PO SCH (18:00)
[2017-12-31] MEDS: RIOCIGUAT 1 MG PO SCH (20:38)
[2017-12-31] MEDS: HYDROCODONE/ACETAMINOPHEN 10/325MG TABLET PO PRN (20:39)
[2017-12-31 22:53] LABS: PLATELET ESTIMATE DECREASED
[2018-01-01] VITALS (52 sets, daily range): BP systolic 75–131; BP diastolic 34–68
[2018-01-01] MEDS: METOCLOPRAMIDE HCL 10MG/2ML VIAL IV SCH ×4 (00:28→17:11)
[2018-01-01] MEDS: IPRATROPIUM/ALBUTEROL 0.5-3(2.5)MG/3ML NEB HHN SCH ×4 (02:59→20:29)
[2018-01-01] MEDS: MORPHINE SULFATE 4 MG/ML CPJ (NOT FOR IM USE) IV PRN ×5 (04:40→20:31)
[2018-01-01] MEDS: GABAPENTIN 300MG CAPSULE PO SCH ×3 (05:32→21:05)
[2018-01-01] MEDS: SILDENAFIL CITRATE 20MG TABLET PO SCH (05:32)
[2018-01-01] MEDS: DIPHENHYDRAMINE 50MG/ML VIAL IV PRN ×5 (05:33→20:41)
[2018-01-01] MEDS: SODIUM CHLORIDE 0.9% INJ 3ML FLUSH IVF SCH ×3 (05:33→22:32)
[2018-01-01 05:45] LABS: HEMATOCRIT. 36.2 % (42.0-52.0); MEAN CORPUSCULAR HEMOGLOBIN 24.4 pg (28.0-32.0); MEAN CORPUSCULAR VOLUME 73.8 fL (80.0-94.0); RED BLOOD CELL COUNT 4.91 mill/uL (4.7-6.1); RED CELL DISTRIBUTION WIDTH 28.9 % (11.6-14.6)
[2018-01-01 05:48] LABS: INR 1.6; PROTHROMBIN TIME 16.9 sec (9.4-11.6)
[2018-01-01 05:56] LABS: CHLORIDE 96 mEq/L (98-107)
[2018-01-01] MEDS ORDERED: PANTOPRAZOLE 40MG DR TABLET PO SCH (06:30)
[2018-01-01] MEDS: PANTOPRAZOLE 40MG DR TABLET PO SCH (07:06)
[2018-01-01] MEDS: SODIUM CHLORIDE 0.9% 1,000 ML IV SCH (07:07)
[2018-01-01] MEDS: BUDESONIDE 0.5MG/2ML NEB HHN SCH ×2 (07:21→20:28)
[2018-01-01] MEDS: CARVEDILOL 3.125 MG TABLET PO SCH ×2 (08:21→20:33)
[2018-01-01] MEDS: ENOXAPARIN 80MG/0.8ML SYR SUBCUT SCH ×2 (08:22→20:32)
[2018-01-01] MEDS: DOCUSATE SODIUM 100MG CAPSULE PO SCH ×2 (08:22→16:08)
[2018-01-01] MEDS: DIGOXIN 125MCG TABLET PO SCH (08:22)
[2018-01-01] MEDS: RIOCIGUAT 1 MG PO SCH ×3 (08:23→16:10)
[2018-01-01] MEDS: HYDROCODONE/ACETAMINOPHEN 10/325MG TABLET PO PRN ×3 (09:15→22:28)
[2018-01-01] MEDS: COLCHICINE 0.6MG TABLET PO SCH (12:00)
[2018-01-01] MEDS: LEVOFLOXACIN 500MG TABLET PO SCH (12:00)
[2018-01-01 13:32] LABS: PLATELET ESTIMATE DECREASED
[2018-01-01 13:33] LABS: MEAN PLATELET VOLUME 9.4 fl (7.4-10.4); PLATELET 106 x1000/uL (130-400)
[2018-01-01] MEDS ORDERED: WARFARIN SODIUM 10MG TABLET PO SCH (18:00)
[2018-01-01] MEDS ORDERED: FUROSEMIDE 40MG TABLET PO NR (20:35)
[2018-01-02] VITALS (54 sets, daily range): BP systolic 83–127; BP diastolic 45–84
[2018-01-02] MEDS: MORPHINE SULFATE 4 MG/ML CPJ (NOT FOR IM USE) IV PRN ×5 (00:26→20:47)
[2018-01-02] MEDS: DIPHENHYDRAMINE 50MG/ML VIAL IV PRN ×5 (00:26→20:43)
[2018-01-02] MEDS: METOCLOPRAMIDE HCL 10MG/2ML VIAL IV SCH ×4 (00:58→17:40)
[2018-01-02] MEDS: IPRATROPIUM/ALBUTEROL 0.5-3(2.5)MG/3ML NEB HHN SCH ×4 (02:45→20:08)
[2018-01-02] MEDS: GABAPENTIN 300MG CAPSULE PO SCH ×3 (05:52→22:46)
[2018-01-02] MEDS: PANTOPRAZOLE 40MG DR TABLET PO SCH (05:52)
[2018-01-02] MEDS: SODIUM CHLORIDE 0.9% INJ 3ML FLUSH IVF SCH ×3 (05:53→22:49)
[2018-01-02 05:56] LABS: INR 1.5; PROTHROMBIN TIME 15.7 sec (9.4-11.6)
[2018-01-02] MEDS: BUDESONIDE 0.5MG/2ML NEB HHN SCH ×2 (08:23→20:08)
[2018-01-02] MEDS: ENOXAPARIN 80MG/0.8ML SYR SUBCUT SCH ×2 (09:17→22:46)
[2018-01-02] MEDS: DIGOXIN 125MCG TABLET PO SCH (09:18)
[2018-01-02] MEDS: DOCUSATE SODIUM 100MG CAPSULE PO SCH ×2 (09:19→17:40)
[2018-01-02] MEDS: COLCHICINE 0.6MG TABLET PO SCH (09:19)
[2018-01-02] MEDS: RIOCIGUAT 1 MG PO SCH ×3 (09:20→17:42)
[2018-01-02] MEDS: CARVEDILOL 3.125 MG TABLET PO SCH ×2 (10:50→21:00)
[2018-01-02] MEDS: LEVOFLOXACIN 500MG TABLET PO SCH (11:14)
[2018-01-02] MEDS: HYDROCODONE/ACETAMINOPHEN 10/325MG TABLET PO PRN ×2 (13:27→22:32)
[2018-01-02] MEDS ORDERED: WARFARIN SODIUM 10MG TABLET PO NR (18:00)
[2018-01-03] VITALS (46 sets, daily range): BP systolic 80–128; BP diastolic 40–73
[2018-01-03] MEDS: IPRATROPIUM/ALBUTEROL 0.5-3(2.5)MG/3ML NEB HHN SCH ×4 (01:04→20:18)
[2018-01-03] MEDS: METOCLOPRAMIDE HCL 10MG/2ML VIAL IV SCH ×4 (01:43→17:46)
[2018-01-03] MEDS: MORPHINE SULFATE 4 MG/ML CPJ (NOT FOR IM USE) IV PRN ×5 (01:44→22:17)
[2018-01-03] MEDS: DIPHENHYDRAMINE 50MG/ML VIAL IV PRN ×5 (01:44→22:16)
[2018-01-03 05:46] LABS: INR 1.5; PROTHROMBIN TIME 15.9 sec (9.4-11.6)
[2018-01-03] MEDS: SODIUM CHLORIDE 0.9% INJ 3ML FLUSH IVF SCH ×3 (06:45→22:18)
[2018-01-03] MEDS: PANTOPRAZOLE 40MG DR TABLET PO SCH (06:50)
[2018-01-03] MEDS: GABAPENTIN 300MG CAPSULE PO SCH ×3 (06:50→22:18)
[2018-01-03] MEDS: BUDESONIDE 0.5MG/2ML NEB HHN SCH ×2 (08:51→20:18)
[2018-01-03] MEDS: COLCHICINE 0.6MG TABLET PO SCH (09:21)
[2018-01-03] MEDS: DOCUSATE SODIUM 100MG CAPSULE PO SCH ×2 (09:22→17:47)
[2018-01-03] MEDS: CARVEDILOL 3.125 MG TABLET PO SCH ×2 (09:22→21:23)
[2018-01-03] MEDS: DIGOXIN 125MCG TABLET PO SCH (09:22)
[2018-01-03] MEDS: RIOCIGUAT 1 MG PO SCH ×3 (09:23→17:47)
[2018-01-03] MEDS: ENOXAPARIN 80MG/0.8ML SYR SUBCUT SCH ×2 (09:24→21:23)
[2018-01-03] MEDS: LEVOFLOXACIN 500MG TABLET PO SCH (11:32)
[2018-01-03] MEDS: HYDROCODONE/ACETAMINOPHEN 10/325MG TABLET PO PRN (16:08)
[2018-01-03] MEDS ORDERED: WARFARIN SODIUM 2MG TABLET PO SCH (18:00)
[2018-01-03] MEDS ORDERED: WARFARIN SODIUM 10MG TABLET PO SCH (18:00)
[2018-01-04] VITALS (39 sets, daily range): BP systolic 88–172; BP diastolic 46–99
[2018-01-04] MEDS: IPRATROPIUM/ALBUTEROL 0.5-3(2.5)MG/3ML NEB HHN SCH ×3 (01:52→14:18)
[2018-01-04] MEDS: DIPHENHYDRAMINE 50MG/ML VIAL IV PRN ×5 (02:20→15:39)
[2018-01-04] MEDS: METOCLOPRAMIDE HCL 10MG/2ML VIAL IV SCH ×4 (02:25→17:25)
[2018-01-04] MEDS: MORPHINE SULFATE 4 MG/ML CPJ (NOT FOR IM USE) IV PRN ×4 (02:26→15:40)
[2018-01-04 05:56] LABS: INR 1.5; PROTHROMBIN TIME 15.3 sec (9.4-11.6)
[2018-01-04] MEDS: GABAPENTIN 300MG CAPSULE PO SCH ×2 (06:00→12:49)
[2018-01-04] MEDS: PANTOPRAZOLE 40MG DR TABLET PO SCH (06:30)
[2018-01-04] MEDS: SODIUM CHLORIDE 0.9% INJ 3ML FLUSH IVF SCH ×2 (06:58→12:50)
[2018-01-04] MEDS: BUDESONIDE 0.5MG/2ML NEB HHN SCH (08:46)
[2018-01-04] MEDS: ENOXAPARIN 80MG/0.8ML SYR SUBCUT SCH (09:26)
[2018-01-04] MEDS: CARVEDILOL 3.125 MG TABLET PO SCH (09:26)
[2018-01-04] MEDS: DIGOXIN 125MCG TABLET PO SCH (09:26)
[2018-01-04] MEDS: DOCUSATE SODIUM 100MG CAPSULE PO SCH ×2 (09:26→17:25)
[2018-01-04] MEDS: COLCHICINE 0.6MG TABLET PO SCH (09:27)
[2018-01-04] MEDS: RIOCIGUAT 1 MG PO SCH ×3 (09:27→17:25)
[2018-01-04] MEDS: HYDROCODONE/ACETAMINOPHEN 10/325MG TABLET PO PRN ×2 (12:50→18:36)
[2018-01-04] MEDS: ONDANSETRON HCL 4MG/2ML VIAL IV PRN (12:54)
[2018-01-04] MEDS ORDERED: WARFARIN SODIUM 2MG TABLET PO SCH (18:00)
[2018-01-04] MEDS ORDERED: WARFARIN SODIUM 10MG TABLET PO SCH (18:00)
== END 2018-01-04 18:25 | disposition short-term general hospital (02) | DRG 314 ==
LOC: ER 14:09 → 6WST 14:35 → EDBEDREQ 16:01 → ENRESERV 20:11 → MICUSO 12-31 13:34
PROVIDERS: ADMIT Family Medicine; ATTEND Family Medicine
DX: I28.1 Aneurysm of pulmonary artery (principal); I26.99 Other pulmonary embolism without acute cor pulmonale; J96.00 Acute respiratory failure, unspecified whether with hypoxia or hypercapnia; E11.43 Type 2 diabetes mellitus with diabetic autonomic (poly)neuropathy; K31.84 Gastroparesis; I82.91 Chronic embolism and thrombosis of unspecified vein; D68.62 Lupus anticoagulant syndrome; D68.69 Other thrombophilia; E87.1 Hypo-osmolality and hyponatremia; J44.1 Chronic obstructive pulmonary disease with (acute) exacerbation; E83.51 Hypocalcemia; K81.9 Cholecystitis, unspecified; T45.515A Adverse effect of anticoagulants, initial encounter; I27.81 Cor pulmonale (chronic); D64.9 Anemia, unspecified; E78.5 Hyperlipidemia, unspecified; F12.90 Cannabis use, unspecified, uncomplicated; F17.200 Nicotine dependence, unspecified, uncomplicated; G89.29 Other chronic pain; I48.2 Chronic atrial fibrillation; I11.0 Hypertensive heart disease with heart failure; I50.9 Heart failure, unspecified; K21.9 Gastro-esophageal reflux disease without esophagitis; K57.30 Diverticulosis of large intestine without perforation or abscess without bleeding; M10.9 Gout, unspecified; Z79.01 Long term (current) use of anticoagulants; Z80.1 Family history of malignant neoplasm of trachea, bronchus and lung; Z90.49 Acquired absence of other specified parts of digestive tract; Z99.81 Dependence on supplemental oxygen; Z88.0 Allergy status to penicillin; Z88.8 Allergy status to other drugs, medicaments and biological substances; Z79.899 Other long term (current) drug therapy; Z72.89 Other problems related to lifestyle
CPT/HCPCS: 36415; 36600; 71045; 71275; 74176; 76700; 78582; 80048; 80053; 80061; 80162; 80305; 81003; 82150; 82375; 82550; 82553; 82805; 82962; 83036; 83690; 83880; 83930; 83935; 84439; 84443; 84484; 85018; 85025; 85379; 85610; 85730; 93005; 93306; 93970; 94640; 96374; 96375; 99291; A9558; C9113; J1200; J1650; J1940; J1956; J2250; J2270; J2405; J2765; J3480; J3490; J7030; J7040; J7050; J7060; J7620; J7626; Q9967

== ENCOUNTER 2018-01-26 14:55 | Inpatient (IN) | payer MEDICARE, MEDICAID ==
[2018-01-26] VITALS (10 sets, daily range): BP systolic 93–122; BP diastolic 44–75
[~2018-01-26] VITALS: Ht 177.8 cm; Wt 94.8 kg
[~2018-01-26 14:55] MED LIST changes: -SPIR25TA4 PO; +SPIR25TA6 PO
[2018-01-26 15:50] LABS: HEMATOCRIT. 31.5 % (42.0-52.0); HEMOGLOBIN. 10.7 g/dL (14.0-18.0); MEAN CORPUSCULAR HEMOGLOBIN 25.9 pg (28.0-32.0); MEAN CORPUSCULAR VOLUME 76.2 fL (80.0-94.0); PLATELET 210 x1000/uL (130-400); RED BLOOD CELL COUNT 4.13 mill/uL (4.7-6.1); RED CELL DISTRIBUTION WIDTH 25.9 % (11.6-14.6)
[2018-01-26 15:51] LABS: CHLORIDE 99 mEq/L (98-107); INR 1.4
[2018-01-26 16:48] LABS: ATYPICAL LYMPHOCYTES 1; PLATELET ESTIMATE NORMAL
[2018-01-26] MEDS ORDERED: MORPHINE SULFATE 4 MG/ML CPJ (NOT FOR IM USE) IV ONE ×2 (17:45→21:15)
[2018-01-26] MEDS ORDERED: DEXT 5%/LACTATED RINGERS 1,000 ML IV SCH (19:31)
[2018-01-26] MEDS ORDERED: LORAZEPAM 2MG/ML CPJ IV PRN (19:45)
[2018-01-26] MEDS ORDERED: IPRATROPIUM/ALBUTEROL 0.5-3(2.5)MG/3ML NEB INH PRN (19:45)
[2018-01-26] MEDS ORDERED: ACETAMINOPHEN 650MG SUPP PR PRN (19:45)
[2018-01-26] MEDS ORDERED: NITROGLYCERIN 0.4MG TABLET SL SL PRN (19:45)
[2018-01-26] MEDS: BLOOD SUGAR DIAGNOSTIC STRIP TEST SCH (21:50)
[2018-01-26] MEDS: INSULIN LISPRO 100 UNITS/ML SUBCUT SCH (21:50)
[2018-01-26] MEDS ORDERED: IOHEXOL-300 100 ML BOTTLE ONE (22:05)
[2018-01-26] MEDS ORDERED: NICARDIPINE 50 MG in SODIUM CHLORIDE 0.9% 230 ML IV PRN (22:30)
[2018-01-26] MEDS ORDERED: PHYTONADIONE 10MG/ML AMP SUBCUT NR (23:17)
[2018-01-26] MEDS ORDERED: DEXTROSE 50% WATER 50ML SYRINGE IV PRN (23:20)
[2018-01-26] MEDS ORDERED: MORPHINE SULFATE 4 MG/ML CPJ (NOT FOR IM USE) IV PRN (23:26)
[2018-01-27] VITALS (89 sets, daily range): BP systolic 50–126; BP diastolic 21–85
[2018-01-27] MEDS: MORPHINE SULFATE 4 MG/ML CPJ (NOT FOR IM USE) IV PRN ×11 (00:05→23:33)
[2018-01-27] MEDS ORDERED: NICARDIPINE 100 MG in SODIUM CHLORIDE 0.9% 60 ML IV PRN (00:30)
[2018-01-27] MEDS ORDERED: KCL 20MEQ/100ML PREMIX 100 ML IV NR (01:00)
[2018-01-27] MEDS: DEXT 5%/LACTATED RINGERS 1,000 ML IV SCH ×2 (01:24→16:54)
[2018-01-27] MEDS: LEVETIRACETAM 500MG PREMIX 100 ML IV SCH ×3 (05:28→20:42)
[2018-01-27] MEDS: INSULIN LISPRO 100 UNITS/ML SUBCUT SCH ×4 (07:00→21:00)
[2018-01-27] MEDS: BLOOD SUGAR DIAGNOSTIC STRIP TEST SCH ×4 (07:07→21:00)
[2018-01-27] MEDS ORDERED: PANTOPRAZOLE SODIUM 40 MG/VIAL IV SCH (09:00)
[2018-01-27] MEDS ORDERED: GADOBENATE DIMEGLUMINE 529 MG/ML 10ML IV ONE (11:13)
[2018-01-27] MEDS ORDERED: IPRATROPIUM/ALBUTEROL 0.5-3(2.5)MG/3ML NEB HHN PRN (12:00)
[2018-01-27] MEDS ORDERED: NON FORMULARY PATIENT HOME MED EA XX SCH (12:30)
[2018-01-27] MEDS: IPRATROPIUM/ALBUTEROL 0.5-3(2.5)MG/3ML NEB HHN SCH ×2 (12:57→20:13)
[2018-01-27] MEDS: BUDESONIDE 0.5MG/2ML NEB HHN SCH ×2 (12:57→20:12)
[2018-01-27] MEDS ORDERED: IOHEXOL-350 100 ML BOTTLE ONE (16:11)
[2018-01-27] MEDS: DOCUSATE SODIUM 250MG CAPSULE PO SCH (18:37)
[2018-01-28] VITALS (84 sets, daily range): BP systolic 87–151; BP diastolic 37–103
[2018-01-28] MEDS: IPRATROPIUM/ALBUTEROL 0.5-3(2.5)MG/3ML NEB HHN SCH ×4 (01:54→20:18)
[2018-01-28] MEDS: MORPHINE SULFATE 4 MG/ML CPJ (NOT FOR IM USE) IV PRN ×3 (02:15→12:54)
[2018-01-28 05:29] LABS: BASOPHILS % 0.7 % (0.0-2.0); EOSINOPHILS % 1.9 % (0.0-5.0); HEMATOCRIT. 29.1 % (42.0-52.0); HEMOGLOBIN. 9.8 g/dL (14.0-18.0); LYMPHOCYTES % 22.9 % (20.0-50.0); MEAN CORPUSCULAR HEMOGLOBIN 25.5 pg (28.0-32.0); MEAN CORPUSCULAR VOLUME 76.2 fL (80.0-94.0); MEAN PLATELET VOLUME 9.1 fl (7.4-10.4); MONOCYTES % 14.4 % (2.0-8.0); NEUTROPHILS % 60.1 % (40.0-76.0); PLATELET 163 x1000/uL (130-400); RED BLOOD CELL COUNT 3.82 mill/uL (4.7-6.1); RED CELL DISTRIBUTION WIDTH 25.9 % (11.6-14.6)
[2018-01-28 05:34] LABS: INR 1.3; PROTHROMBIN TIME 13.6 sec (9.4-11.6)
[2018-01-28 05:40] LABS: CHLORIDE 100 mEq/L (98-107)
[2018-01-28] MEDS ORDERED: LEVETIRACETAM 500MG PREMIX 100 ML IV SCH (06:00)
[2018-01-28] MEDS: INSULIN LISPRO 100 UNITS/ML SUBCUT SCH ×4 (06:04→21:06)
[2018-01-28] MEDS: BLOOD SUGAR DIAGNOSTIC STRIP TEST SCH ×4 (06:04→21:06)
[2018-01-28] MEDS: LEVETIRACETAM 500MG PREMIX 100 ML IV SCH ×2 (08:15→18:21)
[2018-01-28] MEDS: DEXT 5%/LACTATED RINGERS 1,000 ML IV SCH ×2 (08:17→22:30)
[2018-01-28] MEDS: DOCUSATE SODIUM 250MG CAPSULE PO SCH (08:18)
[2018-01-28] MEDS: BUDESONIDE 0.5MG/2ML NEB HHN SCH ×2 (08:39→20:18)
[2018-01-28] MEDS ORDERED: BACITRACIN ZINC 15GM TUBE TOP ONE (08:42)
[2018-01-28] MEDS ORDERED: POVIDONE-IODINE OINT 28.4GM TOP ONE (08:42)
[2018-01-28] MEDS ORDERED: GELATIN SPONGE,ABSORBABLE SZ 100 ONE (08:42)
[2018-01-28] MEDS ORDERED: THROMBIN (BOVINE) 5000 UNITS/VIAL TOP ONE ×2 (08:42→08:43)
[2018-01-28] MEDS ORDERED: NORMAL SALINE 0.9% 10 ML SYR ONE (08:43)
[2018-01-28] MEDS ORDERED: BACITRACIN 50,000 UNITS/VIAL ONE (08:43)
[2018-01-28] MEDS ORDERED: FENTANYL CITRATE/PF 50MCG/ML 5ML VIAL ONE (09:41)
[2018-01-28] MEDS ORDERED: MIDAZOLAM HCL 2 MG/2 ML VIAL ONE (09:41)
[2018-01-28] MEDS ORDERED: PROPOFOL 200MG/20ML VIAL IV ONE ×2 (09:41→10:05)
[2018-01-28] MEDS ORDERED: ROCURONIUM BROMIDE 10MG/ML VIAL 5ML IV ONE (09:41)
[2018-01-28] MEDS ORDERED: SODIUM CHLORIDE 0.9% 1,000 ML IV SCH (10:07)
[2018-01-28] MEDS ORDERED: MEPERIDINE HCL/PF 25MG/ML CPJ IV PRN (10:15)
[2018-01-28] MEDS ORDERED: FENTANYL CITRATE/PF 50MCG/ML 2ML VIAL IV PRN (10:15)
[2018-01-28] MEDS ORDERED: ONDANSETRON HCL 4MG/2ML VIAL IV PRN (10:15)
[2018-01-28] MEDS ORDERED: HYDROMORPHONE HCL/PF 2MG/ML CPJ IV PRN (10:15)
[2018-01-28] MEDS ORDERED: ATROPINE SULFATE 0.4MG/ML VIAL IV PRN (10:15)
[2018-01-28] MEDS ORDERED: METOCLOPRAMIDE HCL 10MG/2ML VIAL ONE (10:28)
[2018-01-28 13:00] LABS: BG BASE EXCESS 0.4 mmol/L (-2.0-2.0); BG CARBOXYHEMOGLOBIN 0.2 % (0.5-1.5); BG DEOXYHEMOGLOBIN 1.5 % (0.0-5.0); BG FRACTION INSPIRED OXYGEN 60; BG HCO3 ACT 26.3 mmol/L (22.0-26.0); BG METHEMOGLOBIN 0.3 % (0.0-1.5); BG OXYGEN SATURATION 98.5 % (92.0-98.5); BG PCO2 48.1 mmHg (35.0-45.0); BG PH 7.356 (7.350-7.450); BG PO2 157.5 mmHg (75.0-100.0); BG SAMPLE SITE LEFT RADIAL; BG TIDAL VOLUME(mL) 450 mL; BG VENT MODE VENT - A/C; BG VENT RATE 14 set
[2018-01-28] MEDS ORDERED: DILTIAZEM HCL 5MG/ML 5ML VIAL IV NR (14:00)
[2018-01-28] MEDS ORDERED: CEFAZOLIN SODIUM 1000MG/VIAL IV SCH (14:00)
[2018-01-28] MEDS ORDERED: CEFAZOLIN 1000MG PREMIX 50 ML IV SCH (14:00)
[2018-01-28] MEDS ORDERED: PHENYTOIN SODIUM 500 MG in SODIUM CHLORIDE 0.9% 50 ML IV NR ×2 (14:00→18:00)
[2018-01-28] MEDS ORDERED: DILTIAZEM HCL 125 MG in DEXT 5% WATER 100 ML IV PRN (14:30)
[2018-01-28] MEDS: CEFAZOLIN 1000MG PREMIX 50 ML IV SCH ×2 (15:29→21:51)
[2018-01-28] MEDS: PHENYTOIN SODIUM 100MG/2ML VIAL IV SCH ×2 (15:35→21:51)
[2018-01-28] MEDS ORDERED: DEXAMETHASONE 4MG/ML 1ML VIAL IV SCH (20:23)
[2018-01-28] MEDS ORDERED: LACTATED RINGERS 1,000 ML IV NR (21:09)
[2018-01-28] MEDS ORDERED: LORAZEPAM 2MG/ML CPJ IV NR (21:45)
[2018-01-28] MEDS ORDERED: LEVETIRACETAM 500MG PREMIX 100 ML IV NR (22:30)
[2018-01-29] VITALS (56 sets, daily range): BP systolic 93–140; BP diastolic 55–78
[2018-01-29] MEDS: IPRATROPIUM/ALBUTEROL 0.5-3(2.5)MG/3ML NEB HHN SCH ×4 (02:06→20:25)
[2018-01-29] MEDS: DEXAMETHASONE 4MG/ML 1ML VIAL IV SCH ×4 (03:17→19:55)
[2018-01-29] MEDS: CEFAZOLIN 1000MG PREMIX 50 ML IV SCH ×2 (06:33→14:34)
[2018-01-29] MEDS: PHENYTOIN SODIUM 100MG/2ML VIAL IV SCH ×3 (06:33→21:44)
[2018-01-29] MEDS: BLOOD SUGAR DIAGNOSTIC STRIP TEST SCH ×4 (06:42→21:00)
[2018-01-29] MEDS: INSULIN LISPRO 100 UNITS/ML SUBCUT SCH ×4 (06:47→21:00)
[2018-01-29] MEDS: LEVETIRACETAM 1000MG/100ML 100 ML IV SCH ×2 (07:03→19:55)
[2018-01-29] MEDS: BUDESONIDE 0.5MG/2ML NEB HHN SCH ×2 (07:42→20:25)
[2018-01-29 08:49] LABS: HEMATOCRIT. 32.1 % (42.0-52.0); HEMOGLOBIN. 10.8 g/dL (14.0-18.0); MEAN CORPUSCULAR HEMOGLOBIN 25.8 pg (28.0-32.0); MEAN PLATELET VOLUME 9.5 fl (7.4-10.4); PLATELET 171 x1000/uL (130-400); RED BLOOD CELL COUNT 4.18 mill/uL (4.7-6.1); RED CELL DISTRIBUTION WIDTH 25.5 % (11.6-14.6)
[2018-01-29] MEDS: DOCUSATE SODIUM 250MG CAPSULE PO SCH (08:51)
[2018-01-29 08:52] LABS: CHLORIDE 103 mEq/L (98-107)
[2018-01-29] MEDS: DEXT 5%/LACTATED RINGERS 1,000 ML IV SCH ×2 (08:52→17:23)
[2018-01-29 09:22] LABS: PLATELET ESTIMATE NORMAL
[2018-01-29] MEDS ORDERED: MAGNESIUM 2 G PREMIX 50 ML IV NR (12:00)
[2018-01-29 12:12] LABS: BG BASE EXCESS -2.8 mmol/L (-2.0-2.0); BG CARBOXYHEMOGLOBIN 0.6 % (0.5-1.5); BG DEOXYHEMOGLOBIN 1.6 % (0.0-5.0); BG FRACTION INSPIRED OXYGEN 40; BG HCO3 ACT 21.1 mmol/L (22.0-26.0); BG METHEMOGLOBIN 0.3 % (0.0-1.5); BG OXYGEN SATURATION 98.4 % (92.0-98.5); BG OXYHEMOGLOBIN 97.5 % (94.0-97.0); BG PCO2 33.3 mmHg (35.0-45.0); BG PH 7.419 (7.350-7.450); BG PO2 136.4 mmHg (75.0-100.0); BG SAMPLE SITE RIGHT RADIAL; BG TIDAL VOLUME(mL) 450 mL; BG TOTAL HEMOGLOBIN 11.1 g/dL (12.0-18.0); BG VENT MODE VENT - A/C; BG VENT RATE 14 set
[2018-01-29] MEDS: PANTOPRAZOLE SODIUM 40 MG/VIAL IV SCH (13:30)
[2018-01-29] MEDS: MORPHINE SULFATE 4 MG/ML CPJ (NOT FOR IM USE) IV PRN (13:30)
[2018-01-29] MEDS ORDERED: LIDOCAINE HCL/PF 1% 2ML VIAL ONE (14:19)
[2018-01-29 14:32] LABS: CLARITY URINE CLEAR (CLEAR); COLOR URINE YELLOW (YELLOW); KETONES URINE NEGATIVE (NEGATIVE); LEUKOCYTE ESTERASE URINE 2+ (NEGATIVE); NITRITE URINE NEGATIVE (NEGATIVE); OCCULT BLOOD URINE 2+ (NEGATIVE); PROTEIN URINE 1+ (NEGATIVE)
[2018-01-29] MEDS ORDERED: MEROPENEM XX SCH (15:00)
[2018-01-29] MEDS ORDERED: VANCOMYCIN 2,000 MG in DEXT 5% WATER 500 ML IV SCH (17:00)
[2018-01-29] MEDS: MEROPENEM 2,000 MG in SODIUM CHLORIDE 0.9% 100 ML IV SCH (17:22)
[2018-01-30] VITALS (83 sets, daily range): BP systolic 99–139; BP diastolic 53–91
[2018-01-30] MEDS: IPRATROPIUM/ALBUTEROL 0.5-3(2.5)MG/3ML NEB HHN SCH ×4 (02:12→20:29)
[2018-01-30] MEDS: DEXT 5%/LACTATED RINGERS 1,000 ML IV SCH ×2 (02:22→16:49)
[2018-01-30] MEDS: DEXAMETHASONE 4MG/ML 1ML VIAL IV SCH ×4 (02:25→20:58)
[2018-01-30] MEDS: MEROPENEM 2,000 MG in SODIUM CHLORIDE 0.9% 100 ML IV SCH ×3 (02:25→17:52)
[2018-01-30] MEDS: PHENYTOIN SODIUM 100MG/2ML VIAL IV SCH ×3 (06:00→22:18)
[2018-01-30] MEDS: ONDANSETRON HCL 4MG/2ML VIAL IV PRN ×2 (06:00→11:06)
[2018-01-30] MEDS: LEVETIRACETAM 1000MG/100ML 100 ML IV SCH ×2 (06:00→17:40)
[2018-01-30] MEDS: BLOOD SUGAR DIAGNOSTIC STRIP TEST SCH ×4 (06:26→20:59)
[2018-01-30] MEDS: INSULIN LISPRO 100 UNITS/ML SUBCUT SCH ×4 (06:26→20:59)
[2018-01-30] MEDS: BUDESONIDE 0.5MG/2ML NEB HHN SCH (07:38)
[2018-01-30] MEDS: DOCUSATE SODIUM 250MG CAPSULE PO SCH (08:53)
[2018-01-30] MEDS: PANTOPRAZOLE SODIUM 40 MG/VIAL IV SCH (09:01)
[2018-01-30] MEDS: VANCOMYCIN 1500MG in DEXTROSE 5% WATER 250ML IV SCH ×2 (09:01→20:58)
[2018-01-30] MEDS: MORPHINE SULFATE 4 MG/ML CPJ (NOT FOR IM USE) IV PRN ×2 (11:47→23:26)
[2018-01-30] MEDS ORDERED: LORAZEPAM 2MG/ML CPJ IV NR (12:00)
[2018-01-30] MEDS ORDERED: DILTIAZEM HCL 5MG/ML 5ML VIAL IV NR (12:30)
[2018-01-30] MEDS ORDERED: DIGOXIN 500MCG/2ML AMP IV NR (18:00)
[2018-01-31] VITALS (74 sets, daily range): BP systolic 81–137; BP diastolic 53–116
[2018-01-31] MEDS: IPRATROPIUM/ALBUTEROL 0.5-3(2.5)MG/3ML NEB HHN SCH ×5 (02:14→20:51)
[2018-01-31] MEDS: MEROPENEM 2,000 MG in SODIUM CHLORIDE 0.9% 100 ML IV SCH ×3 (02:20→18:02)
[2018-01-31] MEDS: DEXAMETHASONE 4MG/ML 1ML VIAL IV SCH ×4 (02:20→20:22)
[2018-01-31] MEDS: DEXT 5%/LACTATED RINGERS 1,000 ML IV SCH ×2 (02:28→18:23)
[2018-01-31] MEDS: PHENYTOIN SODIUM 100MG/2ML VIAL IV SCH ×3 (05:19→22:56)
[2018-01-31] MEDS: LEVETIRACETAM 1000MG/100ML 100 ML IV SCH ×2 (05:19→18:01)
[2018-01-31] MEDS: MORPHINE SULFATE 4 MG/ML CPJ (NOT FOR IM USE) IV PRN (05:57)
[2018-01-31 06:11] LABS: HEMATOCRIT. 33.2 % (42.0-52.0); MEAN CORPUSCULAR HEMOGLOBIN 25.6 pg (28.0-32.0); MEAN CORPUSCULAR VOLUME 77.1 fL (80.0-94.0); MEAN PLATELET VOLUME 9.7 fl (7.4-10.4); PLATELET 165 x1000/uL (130-400); RED BLOOD CELL COUNT 4.31 mill/uL (4.7-6.1); RED CELL DISTRIBUTION WIDTH 25.9 % (11.6-14.6)
[2018-01-31] MEDS: BLOOD SUGAR DIAGNOSTIC STRIP TEST SCH ×4 (06:30→21:00)
[2018-01-31] MEDS: INSULIN LISPRO 100 UNITS/ML SUBCUT SCH ×4 (06:48→21:00)
[2018-01-31 07:00] LABS: CHLORIDE 104 mEq/L (98-107)
[2018-01-31] MEDS: PANTOPRAZOLE SODIUM 40 MG/VIAL IV SCH (08:37)
[2018-01-31] MEDS: VANCOMYCIN 1500MG in DEXTROSE 5% WATER 250ML IV SCH ×2 (08:38→20:22)
[2018-01-31 08:59] LABS: BG BASE EXCESS 2.8 mmol/L (-2.0-2.0); BG CARBOXYHEMOGLOBIN 0.4 % (0.5-1.5); BG DEOXYHEMOGLOBIN 1.7 % (0.0-5.0); BG FRACTION INSPIRED OXYGEN 30; BG HCO3 ACT 26.2 mmol/L (22.0-26.0); BG METHEMOGLOBIN 0.3 % (0.0-1.5); BG OXYGEN SATURATION 98.3 % (92.0-98.5); BG OXYHEMOGLOBIN 97.6 % (94.0-97.0); BG PCO2 35.9 mmHg (35.0-45.0); BG PH 7.481 (7.350-7.450); BG PO2 132.4 mmHg (75.0-100.0); BG SAMPLE SITE RIGHT RADIAL; BG TIDAL VOLUME(mL) 450 mL; BG TOTAL HEMOGLOBIN 11.2 g/dL (12.0-18.0); BG VENT MODE VENT - A/C; BG VENT RATE 14 set
[2018-01-31] MEDS: DOCUSATE SODIUM 250MG CAPSULE PO SCH (09:00)
[2018-01-31 09:34] LABS: PLATELET ESTIMATE NORMAL
[2018-01-31] MEDS ORDERED: DIGOXIN 500MCG/2ML AMP IV SCH (11:45)
[2018-01-31 14:35] LABS: BG BASE EXCESS 2.9 mmol/L (-2.0-2.0); BG CARBOXYHEMOGLOBIN 0.7 % (0.5-1.5); BG DEOXYHEMOGLOBIN 1.9 % (0.0-5.0); BG FRACTION INSPIRED OXYGEN 34; BG HCO3 ACT 26.2 mmol/L (22.0-26.0); BG METHEMOGLOBIN 0.3 % (0.0-1.5); BG OXYGEN SATURATION 98.1 % (92.0-98.5); BG OXYHEMOGLOBIN 97.1 % (94.0-97.0); BG PCO2 35.5 mmHg (35.0-45.0); BG PH 7.486 (7.350-7.450); BG PO2 111.4 mmHg (75.0-100.0); BG SAMPLE SITE RIGHT RADIAL; BG TOTAL HEMOGLOBIN 11.7 g/dL (12.0-18.0); BG VENT MODE NASAL CANNULA
[2018-02-01] VITALS (51 sets, daily range): BP systolic 79–126; BP diastolic 36–92
[2018-02-01] MEDS: DEXAMETHASONE 4MG/ML 1ML VIAL IV SCH ×4 (01:54→20:35)
[2018-02-01] MEDS: IPRATROPIUM/ALBUTEROL 0.5-3(2.5)MG/3ML NEB HHN SCH ×4 (02:11→21:02)
[2018-02-01] MEDS: MEROPENEM 2,000 MG in SODIUM CHLORIDE 0.9% 100 ML IV SCH ×3 (02:36→18:11)
[2018-02-01] MEDS: LEVETIRACETAM 1000MG/100ML 100 ML IV SCH (06:28)
[2018-02-01] MEDS: PHENYTOIN SODIUM 100MG/2ML VIAL IV SCH (06:28)
[2018-02-01] MEDS: BLOOD SUGAR DIAGNOSTIC STRIP TEST SCH ×4 (06:41→20:58)
[2018-02-01] MEDS: INSULIN LISPRO 100 UNITS/ML SUBCUT SCH ×4 (07:00→20:59)
[2018-02-01] MEDS: PANTOPRAZOLE SODIUM 40 MG/VIAL IV SCH (08:52)
[2018-02-01] MEDS: DOCUSATE SODIUM 250MG CAPSULE PO SCH (08:52)
[2018-02-01] MEDS: VANCOMYCIN 1500MG in DEXTROSE 5% WATER 250ML IV SCH ×2 (08:52→20:35)
[2018-02-01] MEDS: MORPHINE SULFATE 4 MG/ML CPJ (NOT FOR IM USE) IV PRN ×2 (09:34→21:46)
[2018-02-01] MEDS: PHENYTOIN SODIUM EXTENDED 100MG CAPSULE PO SCH ×2 (13:11→21:45)
[2018-02-01] MEDS: ACETAMINOPHEN 325MG TABLET PO PRN (13:12)
[2018-02-01] MEDS: DEXT 5%/LACTATED RINGERS 1,000 ML IV SCH (15:30)
[2018-02-01] MEDS: LEVETIRACETAM 500MG TABLET PO SCH (18:12)
[2018-02-02] VITALS (46 sets, daily range): BP systolic 90–143; BP diastolic 31–88
[2018-02-02] MEDS: ACETAMINOPHEN 325MG TABLET PO PRN ×2 (01:24→09:34)
[2018-02-02] MEDS: IPRATROPIUM/ALBUTEROL 0.5-3(2.5)MG/3ML NEB HHN SCH ×4 (01:28→20:21)
[2018-02-02] MEDS: MEROPENEM 2,000 MG in SODIUM CHLORIDE 0.9% 100 ML IV SCH ×3 (01:30→18:08)
[2018-02-02] MEDS: DEXAMETHASONE 4MG/ML 1ML VIAL IV SCH ×4 (01:30→20:38)
[2018-02-02] MEDS: DEXT 5%/LACTATED RINGERS 1,000 ML IV SCH ×3 (01:30→21:30)
[2018-02-02] MEDS: MORPHINE SULFATE 4 MG/ML CPJ (NOT FOR IM USE) IV PRN ×4 (02:38→23:07)
[2018-02-02] MEDS: LEVETIRACETAM 500MG TABLET PO SCH ×2 (05:46→18:12)
[2018-02-02] MEDS: PHENYTOIN SODIUM EXTENDED 100MG CAPSULE PO SCH ×3 (05:46→23:17)
[2018-02-02] MEDS: BLOOD SUGAR DIAGNOSTIC STRIP TEST SCH ×4 (05:47→21:00)
[2018-02-02] MEDS: INSULIN LISPRO 100 UNITS/ML SUBCUT SCH ×4 (07:00→21:00)
[2018-02-02] MEDS: PANTOPRAZOLE SODIUM 40 MG/VIAL IV SCH (09:34)
[2018-02-02] MEDS: DOCUSATE SODIUM 250MG CAPSULE PO SCH (09:34)
[2018-02-02] MEDS: VANCOMYCIN 1500MG in DEXTROSE 5% WATER 250ML IV SCH ×3 (09:35→20:38)
[2018-02-02 19:55] LABS: CHLORIDE 97 mEq/L (98-107)
[2018-02-02 19:56] LABS: HEMATOCRIT. 32.8 % (42.0-52.0); HEMOGLOBIN. 10.9 g/dL (14.0-18.0); MEAN CORPUSCULAR HEMOGLOBIN 25.6 pg (28.0-32.0); MEAN CORPUSCULAR VOLUME 76.9 fL (80.0-94.0); MEAN PLATELET VOLUME 9.3 fl (7.4-10.4); PLATELET 95 x1000/uL (130-400); RED BLOOD CELL COUNT 4.27 mill/uL (4.7-6.1); RED CELL DISTRIBUTION WIDTH 24.3 % (11.6-14.6)
[2018-02-02 21:23] LABS: PLATELET ESTIMATE MARKEDLY DECREASED
[2018-02-03] VITALS (42 sets, daily range): BP systolic 90–134; BP diastolic 53–90
[2018-02-03] MEDS: IPRATROPIUM/ALBUTEROL 0.5-3(2.5)MG/3ML NEB HHN SCH ×4 (02:24→20:06)
[2018-02-03] MEDS: MEROPENEM 2,000 MG in SODIUM CHLORIDE 0.9% 100 ML IV SCH ×3 (02:39→18:25)
[2018-02-03] MEDS: DEXAMETHASONE 4MG/ML 1ML VIAL IV SCH ×4 (02:39→19:50)
[2018-02-03] MEDS: MORPHINE SULFATE 4 MG/ML CPJ (NOT FOR IM USE) IV PRN ×5 (03:05→23:45)
[2018-02-03 05:57] LABS: HEMATOCRIT. 29.6 % (42.0-52.0); MEAN CORPUSCULAR HEMOGLOBIN 25.7 pg (28.0-32.0); MEAN CORPUSCULAR VOLUME 76.5 fL (80.0-94.0); RED BLOOD CELL COUNT 3.87 mill/uL (4.7-6.1); RED CELL DISTRIBUTION WIDTH 24.6 % (11.6-14.6)
[2018-02-03 06:06] LABS: CHLORIDE 99 mEq/L (98-107)
[2018-02-03] MEDS: BLOOD SUGAR DIAGNOSTIC STRIP TEST SCH ×4 (06:30→21:00)
[2018-02-03] MEDS: PHENYTOIN SODIUM EXTENDED 100MG CAPSULE PO SCH ×3 (06:41→21:09)
[2018-02-03] MEDS: LEVETIRACETAM 500MG TABLET PO SCH ×2 (06:42→18:02)
[2018-02-03] MEDS: INSULIN LISPRO 100 UNITS/ML SUBCUT SCH ×4 (06:43→21:10)
[2018-02-03] MEDS: DEXT 5%/LACTATED RINGERS 1,000 ML IV SCH ×2 (06:44→18:28)
[2018-02-03] MEDS: VANCOMYCIN 1500MG in DEXTROSE 5% WATER 250ML IV SCH ×2 (09:00→21:09)
[2018-02-03] MEDS: PANTOPRAZOLE SODIUM 40 MG/VIAL IV SCH (09:06)
[2018-02-03] MEDS: DOCUSATE SODIUM 250MG CAPSULE PO SCH (09:06)
[2018-02-03] MEDS: ACETAMINOPHEN 325MG TABLET PO PRN (09:12)
[2018-02-03 09:50] LABS: MEAN PLATELET VOLUME 9.5 fl (7.4-10.4); PLATELET 89 x1000/uL (130-400); PLATELET ESTIMATE SLIGHTLY DECREASED
[2018-02-04] VITALS (18 sets, daily range): BP systolic 36–123; BP diastolic 20–78
[2018-02-04] MEDS: IPRATROPIUM/ALBUTEROL 0.5-3(2.5)MG/3ML NEB HHN SCH ×4 (02:12→21:00)
[2018-02-04] MEDS: DEXAMETHASONE 4MG/ML 1ML VIAL IV SCH ×2 (02:45→20:24)
[2018-02-04] MEDS: MEROPENEM 2,000 MG in SODIUM CHLORIDE 0.9% 100 ML IV SCH ×3 (02:45→18:11)
[2018-02-04] MEDS: MORPHINE SULFATE 4 MG/ML CPJ (NOT FOR IM USE) IV PRN ×4 (04:12→22:45)
[2018-02-04 06:10] LABS: CHLORIDE 96 mEq/L (98-107)
[2018-02-04] MEDS: INSULIN LISPRO 100 UNITS/ML SUBCUT SCH ×4 (06:11→20:32)
[2018-02-04] MEDS: BLOOD SUGAR DIAGNOSTIC STRIP TEST SCH ×4 (06:11→20:31)
[2018-02-04] MEDS: LEVETIRACETAM 500MG TABLET PO SCH ×2 (06:16→18:11)
[2018-02-04] MEDS: PHENYTOIN SODIUM EXTENDED 100MG CAPSULE PO SCH ×3 (06:16→22:15)
[2018-02-04] MEDS ORDERED: TRAMADOL 50MG TABLET PO PRN (08:30)
[2018-02-04] MEDS: PANTOPRAZOLE SODIUM 40 MG/VIAL IV SCH (08:45)
[2018-02-04] MEDS: DOCUSATE SODIUM 250MG CAPSULE PO SCH (08:45)
[2018-02-04] MEDS: VANCOMYCIN 1500MG in DEXTROSE 5% WATER 250ML IV SCH (09:55)
[2018-02-04] MEDS ORDERED: VANCOMYCIN 1,500 MG in DEXT 5% WATER 250 ML IV SCH (21:00)
[2018-02-05] VITALS: BP 117/78
[2018-02-05] MEDS: IPRATROPIUM/ALBUTEROL 0.5-3(2.5)MG/3ML NEB HHN SCH ×4 (01:53→21:34)
[2018-02-05] MEDS: MEROPENEM 2,000 MG in SODIUM CHLORIDE 0.9% 100 ML IV SCH ×3 (03:06→17:30)
[2018-02-05] MEDS: MORPHINE SULFATE 4 MG/ML CPJ (NOT FOR IM USE) IV PRN ×2 (03:07→09:56)
[2018-02-05 04:00] VITALS: BP 102/65
[2018-02-05 06:11] LABS: CHLORIDE 97 mEq/L (98-107)
[2018-02-05] MEDS: INSULIN LISPRO 100 UNITS/ML SUBCUT SCH ×4 (06:32→20:27)
[2018-02-05] MEDS: BLOOD SUGAR DIAGNOSTIC STRIP TEST SCH ×4 (06:32→20:26)
[2018-02-05] MEDS: LEVETIRACETAM 500MG TABLET PO SCH ×2 (06:32→18:01)
[2018-02-05] MEDS: PHENYTOIN SODIUM EXTENDED 100MG CAPSULE PO SCH ×3 (06:32→21:51)
[2018-02-05 08:00] VITALS: BP 98/62
[2018-02-05] MEDS: DOCUSATE SODIUM 250MG CAPSULE PO SCH (09:01)
[2018-02-05] MEDS: PANTOPRAZOLE SODIUM 40 MG/VIAL IV SCH (09:01)
[2018-02-05] MEDS: DEXAMETHASONE 4MG/ML 1ML VIAL IV SCH ×2 (09:01→19:54)
[2018-02-05] MEDS: HYDROMORPHONE HCL/PF 2MG/ML CPJ IV PRN ×2 (11:58→19:55)
[2018-02-05 12:00] VITALS: BP 98/66
[2018-02-05] MEDS ORDERED: DIGOXIN 500MCG/2ML AMP IV NR (15:15)
[2018-02-05 16:00] VITALS: BP 121/74
[2018-02-05 16:28] LABS: CREATINE KINASE MB FRACTION 1.7 ng/mL (0.5-3.6)
[2018-02-05 20:00] VITALS: BP 97/65
[2018-02-05] MEDS: DIPHENHYDRAMINE 50MG/ML VIAL IV PRN (21:51)
[2018-02-06] VITALS: BP 107/77
[2018-02-06] MEDS: MEROPENEM 2,000 MG in SODIUM CHLORIDE 0.9% 100 ML IV SCH ×3 (01:08→17:40)
[2018-02-06] MEDS: HYDROMORPHONE HCL/PF 2MG/ML CPJ IV PRN ×4 (02:02→20:21)
[2018-02-06] MEDS: IPRATROPIUM/ALBUTEROL 0.5-3(2.5)MG/3ML NEB HHN SCH ×4 (02:27→20:12)
[2018-02-06 04:00] VITALS: BP 122/74
[2018-02-06] MEDS: PHENYTOIN SODIUM EXTENDED 100MG CAPSULE PO SCH ×3 (05:25→21:35)
[2018-02-06] MEDS: LEVETIRACETAM 500MG TABLET PO SCH ×2 (05:25→17:40)
[2018-02-06] MEDS: BLOOD SUGAR DIAGNOSTIC STRIP TEST SCH ×4 (05:47→20:21)
[2018-02-06] MEDS: INSULIN LISPRO 100 UNITS/ML SUBCUT SCH ×4 (05:47→20:27)
[2018-02-06 08:00] VITALS: BP 123/78
[2018-02-06] MEDS: DOCUSATE SODIUM 250MG CAPSULE PO SCH (08:15)
[2018-02-06] MEDS: PANTOPRAZOLE SODIUM 40 MG/VIAL IV SCH (08:15)
[2018-02-06] MEDS: DEXAMETHASONE 4MG/ML 1ML VIAL IV SCH ×2 (08:15→20:21)
[2018-02-06 12:00] VITALS: BP 102/78
[2018-02-06] MEDS ORDERED: VANCOMYCIN 1 G PREMIX 200 ML IV SCH (12:00)
[2018-02-06] MEDS: DILTIAZEM HCL 30MG TABLET PO SCH ×3 (12:25→23:46)
[2018-02-06] MEDS ORDERED: DIGOXIN 500MCG/2ML AMP IV SCH (15:15)
[2018-02-06 16:00] VITALS: BP 105/85
[2018-02-06 20:00] VITALS: BP 108/78
[2018-02-06] MEDS: DIPHENHYDRAMINE 50MG/ML VIAL IV PRN (22:51)
[2018-02-07] VITALS: BP 106/87
[2018-02-07] MEDS: MEROPENEM 2,000 MG in SODIUM CHLORIDE 0.9% 100 ML IV SCH ×3 (01:46→18:48)
[2018-02-07] MEDS: IPRATROPIUM/ALBUTEROL 0.5-3(2.5)MG/3ML NEB HHN SCH ×4 (02:00→21:40)
[2018-02-07] MEDS: HYDROMORPHONE HCL/PF 2MG/ML CPJ IV PRN ×3 (03:53→18:50)
[2018-02-07 04:00] VITALS: BP 123/82
[2018-02-07] MEDS: LEVETIRACETAM 500MG TABLET PO SCH ×2 (05:21→18:48)
[2018-02-07] MEDS: PHENYTOIN SODIUM EXTENDED 100MG CAPSULE PO SCH ×3 (05:21→21:24)
[2018-02-07] MEDS: DILTIAZEM HCL 30MG TABLET PO SCH ×3 (05:22→18:48)
[2018-02-07] MEDS: BLOOD SUGAR DIAGNOSTIC STRIP TEST SCH ×4 (06:12→21:24)
[2018-02-07] MEDS: INSULIN LISPRO 100 UNITS/ML SUBCUT SCH ×4 (06:12→21:00)
[2018-02-07 07:10] LABS: HEMATOCRIT. 33.7 % (42.0-52.0); HEMOGLOBIN. 11.3 g/dL (14.0-18.0); MEAN CORPUSCULAR VOLUME 77.4 fL (80.0-94.0); RED BLOOD CELL COUNT 4.35 mill/uL (4.7-6.1); RED CELL DISTRIBUTION WIDTH 23.9 % (11.6-14.6)
[2018-02-07 07:12] LABS: CHLORIDE 95 mEq/L (98-107)
[2018-02-07 08:00] VITALS: BP 113/83
[2018-02-07] MEDS: PANTOPRAZOLE SODIUM 40 MG/VIAL IV SCH (08:49)
[2018-02-07] MEDS: DEXAMETHASONE 4MG/ML 1ML VIAL IV SCH ×2 (08:49→21:23)
[2018-02-07] MEDS: DOCUSATE SODIUM 250MG CAPSULE PO SCH (08:49)
[2018-02-07 09:26] LABS: PLATELET 114 x1000/uL (130-400)
[2018-02-07 09:29] LABS: PLATELET ESTIMATE SLIGHTLY DECREASED
[2018-02-07 12:00] VITALS: BP 116/76
[2018-02-07] MEDS: VANCOMYCIN 1250MG in DEXTROSE 5% WATER 250ML IV SCH (14:49)
[2018-02-07 16:00] VITALS: BP 110/69
[2018-02-07 20:00] VITALS: BP 128/75
[2018-02-08] VITALS (45 sets, daily range): BP systolic 35–172; BP diastolic 18–122
[2018-02-08] MEDS: HYDROMORPHONE HCL/PF 2MG/ML CPJ IV PRN ×3 (00:29→13:02)
[2018-02-08] MEDS: DILTIAZEM HCL 30MG TABLET PO SCH ×5 (00:29→23:13)
[2018-02-08] MEDS: IPRATROPIUM/ALBUTEROL 0.5-3(2.5)MG/3ML NEB HHN SCH ×4 (02:09→20:30)
[2018-02-08] MEDS: MEROPENEM 2,000 MG in SODIUM CHLORIDE 0.9% 100 ML IV SCH ×3 (02:27→18:00)
[2018-02-08] MEDS: PHENYTOIN SODIUM EXTENDED 100MG CAPSULE PO SCH ×3 (06:09→22:00)
[2018-02-08] MEDS: LEVETIRACETAM 500MG TABLET PO SCH ×2 (06:09→18:00)
[2018-02-08] MEDS: BLOOD SUGAR DIAGNOSTIC STRIP TEST SCH ×4 (06:14→20:36)
[2018-02-08] MEDS: INSULIN LISPRO 100 UNITS/ML SUBCUT SCH ×3 (06:15→20:36)
[2018-02-08] MEDS: PANTOPRAZOLE SODIUM 40 MG/VIAL IV SCH (09:03)
[2018-02-08] MEDS: DOCUSATE SODIUM 250MG CAPSULE PO SCH (09:04)
[2018-02-08] MEDS: DEXAMETHASONE 4MG/ML 1ML VIAL IV SCH ×2 (09:14→21:00)
[2018-02-08] MEDS: VANCOMYCIN 1250MG in DEXTROSE 5% WATER 250ML IV SCH (13:00)
[2018-02-08] MEDS ORDERED: EPINEPHRINE 0.1MG/ML (1:10,000) 10ML SYR ONE (13:21)
[2018-02-08] MEDS ORDERED: CALCIUM CHLORIDE 1GM/10ML SYR IV ONE (13:21)
[2018-02-08] MEDS ORDERED: SODIUM BICARBONATE 7.5% 0.9 MEQ/ML 50ML SYR IV ONE (13:21)
[2018-02-08] MEDS ORDERED: NOREPINEPHRINE 8 MG in DEXT 5% WATER 242 ML IV PRN (16:45)
[2018-02-08 17:32] LABS: BG BASE EXCESS -19.2 mmol/L (-2.0-2.0); BG CARBOXYHEMOGLOBIN 1.4 % (0.5-1.5); BG DEOXYHEMOGLOBIN 39.8 % (0.0-5.0); BG FRACTION INSPIRED OXYGEN 100; BG HCO3 ACT 11.1 mmol/L (22.0-26.0); BG METHEMOGLOBIN 0.2 % (0.0-1.5); BG OXYGEN SATURATION 59.6 % (92.0-98.5); BG OXYHEMOGLOBIN 58.6 % (94.0-97.0); BG PCO2 43.9 mmHg (35.0-45.0); BG PH 7.019 (7.350-7.450); BG SAMPLE SITE LEFT FEMORAL; BG TIDAL VOLUME(mL) 450 mL; BG TOTAL HEMOGLOBIN 11.2 g/dL (12.0-18.0); BG VENT MODE VENT - A/C; BG VENT RATE 14 set
[2018-02-08] MEDS ORDERED: SODIUM BICARBONATE 8.4% 1 MEQ/ML 50ML SYR IV NR ×2 (17:39→20:30)
[2018-02-08] MEDS ORDERED: NOREPINEPHRINE 4 MG in DEXT 5% WATER 246 ML IV PRN (17:40)
[2018-02-08] MEDS ORDERED: PHENYLEPHRINE 10 MG in DEXT 5% WATER 249 ML IV PRN (17:40)
[2018-02-08] MEDS: SODIUM BICARBONATE 150 MEQ in DEXTROSE 5% WATER 1,000 ML IV SCH (18:14)
[2018-02-08] MEDS: VASOPRESSIN 10 UNIT in SODIUM CHLORIDE 0.9% 99.5 ML IV PRN ×2 (18:17→22:26)
[2018-02-08 20:09] LABS: BG BASE EXCESS -15.1 mmol/L (-2.0-2.0); BG CARBOXYHEMOGLOBIN 0.5 % (0.5-1.5); BG DEOXYHEMOGLOBIN 1.1 % (0.0-5.0); BG FRACTION INSPIRED OXYGEN 100; BG HCO3 ACT 12.6 mmol/L (22.0-26.0); BG METHEMOGLOBIN 0.2 % (0.0-1.5); BG OXYGEN SATURATION 98.9 % (92.0-98.5); BG OXYHEMOGLOBIN 98.2 % (94.0-97.0); BG PCO2 36.3 mmHg (35.0-45.0); BG PH 7.158 (7.350-7.450); BG SAMPLE SITE RIGHT RADIAL; BG TIDAL VOLUME(mL) 600 mL; BG TOTAL HEMOGLOBIN 11.1 g/dL (12.0-18.0); BG VENT MODE VENT - A/C; BG VENT RATE 20 set
[2018-02-08] MEDS: NOREPINEPHRINE 16 MG in DEXT 5% WATER 234 ML IV PRN (22:25)
[2018-02-08] MEDS: PHENYLEPHRINE 40 MG in DEXT 5% WATER 246 ML IV PRN (22:27)
[2018-02-08] MEDS: DOPAMINE 400MG PREMIX 250 ML IV PRN (23:17)
[2018-02-09] VITALS (78 sets, daily range): BP systolic 0–157; BP diastolic 0–113
[2018-02-09] MEDS: VASOPRESSIN 10 UNIT in SODIUM CHLORIDE 0.9% 99.5 ML IV PRN ×3 (01:39→09:45)
[2018-02-09] MEDS: IPRATROPIUM/ALBUTEROL 0.5-3(2.5)MG/3ML NEB HHN SCH ×2 (01:40→07:53)
[2018-02-09] MEDS: DOPAMINE 400MG PREMIX 250 ML IV PRN ×3 (01:49→06:33)
[2018-02-09] MEDS: MEROPENEM 2,000 MG in SODIUM CHLORIDE 0.9% 100 ML IV SCH ×2 (02:09→11:58)
[2018-02-09] MEDS: PHENYLEPHRINE 40 MG in DEXT 5% WATER 246 ML IV PRN ×4 (02:10→12:00)
[2018-02-09] MEDS: DILTIAZEM HCL 30MG TABLET PO SCH ×2 (05:04→11:52)
[2018-02-09] MEDS: SODIUM BICARBONATE 150 MEQ in DEXTROSE 5% WATER 1,000 ML IV SCH (05:15)
[2018-02-09] MEDS: PHENYTOIN SODIUM EXTENDED 100MG CAPSULE PO SCH (05:16)
[2018-02-09] MEDS: LEVETIRACETAM 500MG TABLET PO SCH (05:16)
[2018-02-09] MEDS: NOREPINEPHRINE 16 MG in DEXT 5% WATER 234 ML IV PRN (05:16)
[2018-02-09 05:29] LABS: HEMOGLOBIN. 10.4 g/dL (14.0-18.0); MEAN CORPUSCULAR HEMOGLOBIN 25.3 pg (28.0-32.0); MEAN CORPUSCULAR VOLUME 82.6 fL (80.0-94.0); MEAN PLATELET VOLUME 8.8 fl (7.4-10.4); PLATELET 78 x1000/uL (130-400); RED BLOOD CELL COUNT 4.11 mill/uL (4.7-6.1); RED CELL DISTRIBUTION WIDTH 23.3 % (11.6-14.6)
[2018-02-09 05:33] LABS: CHLORIDE 88 mEq/L (98-107)
[2018-02-09] MEDS: BLOOD SUGAR DIAGNOSTIC STRIP TEST SCH ×2 (05:47→12:10)
[2018-02-09] MEDS: INSULIN LISPRO 100 UNITS/ML SUBCUT SCH ×2 (05:47→12:12)
[2018-02-09 05:50] LABS: PLATELET ESTIMATE DECREASED
[2018-02-09] MEDS ORDERED: LIDOCAINE HCL/PF 1% 10 MG/ML 30ML VIAL ONE (07:35)
[2018-02-09] MEDS ORDERED: ATROPINE SULFATE 1MG/10ML SYR ONE (08:27)
[2018-02-09] MEDS ORDERED: ATROPINE SULFATE 1MG/10ML SYR IV SCH (08:30)
[2018-02-09] MEDS ORDERED: DEXTROSE 50% WATER 50ML SYRINGE IV SCH (08:30)
[2018-02-09] MEDS ORDERED: INSULIN REGULAR (HUMULIN R) 300UNITS/3ML IV SCH (08:30)
[2018-02-09] MEDS ORDERED: SODIUM BICARBONATE 8.4% 1 MEQ/ML 50ML SYR IV SCH (08:30)
[2018-02-09 08:37] LABS: BG BASE EXCESS -21.5 mmol/L (-2.0-2.0); BG CARBOXYHEMOGLOBIN 0.5 % (0.5-1.5); BG DEOXYHEMOGLOBIN 7.5 % (0.0-5.0); BG FRACTION INSPIRED OXYGEN 100; BG HCO3 ACT 9.5 mmol/L (22.0-26.0); BG METHEMOGLOBIN 0.3 % (0.0-1.5); BG OXYGEN SATURATION 92.4 % (92.0-98.5); BG OXYHEMOGLOBIN 91.7 % (94.0-97.0); BG PCO2 42.1 mmHg (35.0-45.0); BG PO2 100.1 mmHg (75.0-100.0); BG SAMPLE SITE RIGHT FEMORAL; BG TIDAL VOLUME(mL) 600 mL; BG TOTAL HEMOGLOBIN 10.9 g/dL (12.0-18.0); BG VENT MODE VENT - A/C; BG VENT RATE 26 set
[2018-02-09] MEDS: DOCUSATE SODIUM 250MG CAPSULE PO SCH (08:45)
[2018-02-09] MEDS: DEXAMETHASONE 4MG/ML 1ML VIAL IV SCH (08:45)
[2018-02-09] MEDS: PANTOPRAZOLE SODIUM 40 MG/VIAL IV SCH (08:45)
[2018-02-09] MEDS: DOPAMINE 800MG PREMIX 250 ML IV PRN ×2 (09:43→12:00)
[2018-02-09] MEDS ORDERED: HYDROCORTISONE SOD SUCCINATE 100 MG/2 ML VIAL IV SCH (10:08)
[2018-02-09] MEDS: VANCOMYCIN 1250MG in DEXTROSE 5% WATER 250ML IV SCH (13:11)
[2018-02-09] MEDS ORDERED: PHENYTOIN 100 MG/4 ML UDC NG SCH (14:00)
== END 2018-02-09 13:11 | disposition expired | DRG 23 ==
LOC: ER 15:32 → MICUSO 19:04 → EDBEDREQ 19:11 → ENRESERV 19:20 → SUPCPDRO 19:36 → 5WST 02-04 16:53 → MICUSO 02-08 16:45
PROVIDERS: ADMIT Hospitalist; ATTEND Internal Medicine
PROC: 0BH17EZ Insertion of Endotracheal Airway into Trachea, Via Natural or Artificial Opening (ICD-10-PCS; 2018-01-28)
PROC: 5A1945Z Respiratory Ventilation, 24-96 Consecutive Hours (ICD-10-PCS; principal; 2018-01-28 09:30)
PROC: 4A00X4Z Measurement of Central Nervous Electrical Activity, External Approach (ICD-10-PCS; 2018-01-31)
PROC: 0NU007Z Supplement Skull with Autologous Tissue Substitute, Open Approach (ICD-10-PCS; 2018-02-08)
PROC: 00C00ZZ Extirpation of Matter from Brain, Open Approach (ICD-10-PCS; 2018-02-08)
PROC: 009400Z Drainage of Intracranial Subdural Space with Drainage Device, Open Approach (ICD-10-PCS; 2018-02-08)
PROC: 5A12012 Performance of Cardiac Output, Single, Manual (ICD-10-PCS; 2018-02-08)
PROC: 06HY33Z Insertion of Infusion Device into Lower Vein, Percutaneous Approach (ICD-10-PCS; 2018-02-08)
PROC: 0BH17EZ Insertion of Endotracheal Airway into Trachea, Via Natural or Artificial Opening (ICD-10-PCS; 2018-02-08)
PROC: 5A1935Z Respiratory Ventilation, Less than 24 Consecutive Hours (ICD-10-PCS; 2018-02-08)
PROC: 02HV33Z Insertion of Infusion Device into Superior Vena Cava, Percutaneous Approach (ICD-10-PCS; 2018-02-09)
PROC: B548ZZA Ultrasonography of Superior Vena Cava, Guidance (ICD-10-PCS; 2018-02-09)
DX: I61.9 Nontraumatic intracerebral hemorrhage, unspecified (principal); J96.00 Acute respiratory failure, unspecified whether with hypoxia or hypercapnia; I26.99 Other pulmonary embolism without acute cor pulmonale; G93.5 Compression of brain; G06.2 Extradural and subdural abscess, unspecified; I28.1 Aneurysm of pulmonary artery; D68.59 Other primary thrombophilia; I82.91 Chronic embolism and thrombosis of unspecified vein; N39.0 Urinary tract infection, site not specified; I82.431 Acute embolism and thrombosis of right popliteal vein; I62.00 Nontraumatic subdural hemorrhage, unspecified; I27.24 Chronic thromboembolic pulmonary hypertension; Z66 Do not resuscitate; I50.9 Heart failure, unspecified; I11.0 Hypertensive heart disease with heart failure; E11.9 Type 2 diabetes mellitus without complications; E87.6 Hypokalemia; K21.9 Gastro-esophageal reflux disease without esophagitis; I48.2 Chronic atrial fibrillation; B96.20 Unspecified Escherichia coli [E. coli] as the cause of diseases classified elsewhere; B96.89 Other specified bacterial agents as the cause of diseases classified elsewhere; D64.9 Anemia, unspecified; E87.5 Hyperkalemia; F12.90 Cannabis use, unspecified, uncomplicated; I27.81 Cor pulmonale (chronic); I46.9 Cardiac arrest, cause unspecified; Z53.9 Procedure and treatment not carried out, unspecified reason; Z78.1 Physical restraint status; Z79.01 Long term (current) use of anticoagulants; Z79.4 Long term (current) use of insulin; Z99.81 Dependence on supplemental oxygen; Z80.1 Family history of malignant neoplasm of trachea, bronchus and lung; Z82.5 Family history of asthma and other chronic lower respiratory diseases; Z86.718 Personal history of other venous thrombosis and embolism; Z22.322 Carrier or suspected carrier of Methicillin resistant Staphylococcus aureus; Z87.891 Personal history of nicotine dependence; Z88.0 Allergy status to penicillin
CPT/HCPCS: 36415; 36569; 36600; 70450; 70460; 70553; 71045; 71275; 74018; 76937; 80048; 80053; 80061; 80185; 80202; 81003; 82310; 82375; 82550; 82553; 82805; 82962; 83036; 83735; 84484; 85025; 85610; 85651; 86850; 86900; 86920; 87040; 87070; 87075; 87077; 87086; 87116; 87186; 87205; 88300; 88305; 92610; 92950; 93005; 93306; 93970; 94002; 94003; 94640; 95816; 96374; 97110; 97116; 97163; 97167; 99285; A4216; A6261; A9577; C1713; C1725; C1769; C1893; C9113; J0461; J0690; J1100; J1160; J1165; J1170; J1200; J1265; J1720; J1815; J1953; J2060; J2185; J2250; J2270; J2370; J2405; J2704; J2765; J3010; J3370; J3430; J3475; J3480; J3490; J7030; J7040; J7050; J7060; J7070; J7120; J7121; J7620; J7626; Q9967; A4315